=== PATIENT | male | born 1995 | race Caucasian/White ===

== ENCOUNTER 2020-02-09 14:04 | Inpatient (IN) | payer MEDICAID, SELFPAY ==
[2020-02-09 14:08] VITALS: BP 147/69; PULSE 91; TEMP 36.8; O2SAT 98
--- NOTE | 2020-02-09 14:45 | W.ED.GENAD ---
Discharge Plan Disposition Patient Disposition: [facility] INPATIENT Condition: Stable Discharge Details Chief Complaint: PsychEval Clinical Impression: Psychosis, Substance abuse Admit Date/Time: 02/09/20 22:08 Admit Provider: Latasha Horowitz Attending Provider: Latasha Horowitz Primary Care Provider: Saqib Quiroga ED Provider: Paulino Mcintyre [facility] Course Hospital Course: 24-year-old male with a past medical history of unspecified psychotic disorder and chronic polypharmacy drug abuse including narcotics, THC, and cocaine who presents with acute exacerbation of psychosis manifested by auditory hallucinations and suicidal and homicidal ideation. He was brought in by his family because of aggressive and labile behavior and concern for risky behavior including cleaning of his gun while making statements of some body could get hurt soon if they do not stop the voices. Patient was admitted as an involuntary emergency evaluation admission for acute psychosis. Second certification was performed by a state psychiatrist who agreed that he needs hospitalization. During his hospitalization he required multiple antipsychotic medications including Zyprexa and Haldol which were tried emergency department in addition to benzodiazepines and Benadryl. Eventually calm down in the emergency room with the use of ketamine. However after being hospitalized he exhibited more aggressive behavior along with continued auditory hallucinations and required repeated treatments with IM Valium as well as Benadryl and Thorazine (he had pulled out his IV and therefore IM medications were used. Combination of high-dose Valium at 20 mg IM and Benadryl 50 mg IM and Thorazine 50 mg IM seem to work the best in terms of controlling his symptoms including a reduction in his auditory hallucinations and improved sleep. A lower dose of Thorazine 25 mg had been tried initially without success. At this time the patient needs ongoing inpatient psychiatric treatment as well as reinstitution of antipsychotic oral medications. He has been accepted to the [facility] in [place], [place]. Discharge Instructions Instructions: Bipolar Disorder (DC), Help Prevent Suicide (DC) Discharge Data Discharge Date/Time-TO BE ENTERED AT DEPARTURE: 02/09/20 23:55 Medical Decision Making <ADEOLA Crowe - Last Filed: 02/12/20 08:22> Is a 24-year-old patient presenting the emergency room for acute agitation. Patient is reporting auditory hallucinations. Patient is responding to his auditory hallucinations which are causing agitation. Patient is accompanied by his mother whom he has been staying with for the weekend. Mother reports she is concerned regarding his alcohol and drug use. Patient has been drinking alcohol then reportedly using crack and cocaine. Patient does report a history of substance abuse for the last 5 to 6 years. Patient reports initially when asked that he is neither homicidal or suicidal however within a few minutes of becoming agitated reports that he would kill himself. Mother is concerned as patient was cleaning his guns at home. Mother concerned regarding patient's agitation and behavior. Patient has been given Ativan at this afternoon at approximately noon which was the patient's mother's. Patient took 0.5 mg of Ativan which was somewhat helpful to calm him down. Patient denies any acute medical concerns at this time. Patient given Zyprexa and Ativan to calm his auditory hallucinations and agitation after initial evaluation. Patient to become more calm. Patient consented to labs and urinalysis. Discussed case with mental health who had conversation with the patient via iPad Per [facility] she reports the patient and mother declined admission to the hospital. Their preference is outpatient management, with plan to follow-up as an outpatient. I am somewhat concerned regarding this plan given patient's initial presentation clearly reacting to auditory hallucinations and quite agitated. I went to discuss this plan of care with the patient who very quickly began to escalate and become agitated. At this point I reached back out to mental health who will speak with her stave cutting supervisor. At this time case was signed out to Dr. Gordon Shipman. <Gordon Shipman MD - Last Filed: 02/09/20 21:47> 18:30 --care signed out by ADEOLA Fountain with plan to follow-up on mental health recommendation based on reassessment. Mental health screener assessed the patient and feels patient cannot safely be discharged home and is at risk of harming self or others. Patient refusing voluntary admission. Plan to proceed with EE evaluation. Patient refusing treatment and refusing to cooperate - patient asked to stay in room and he immediately left room and confronted staff aggressively. Mother escalating situation and asked to leave the emergency department. Patient throwing articles across the emergency department. Screaming and hollering at staff. He is verbally threatening to staff. De-escalation techniques not successful. Code wilmar called. Patient was successfully restrained without complication. One-to-one clinical patient observer initiated. Patient quite agitated post restraint application. Patient screaming, red in the face and diaphoretic. Patient threatening I will kill everyone. Just wait, I will fucking kill all of you. Will administer chemical sedative and antipsychotic Haldol 5 mg IM, Ativan 2 mg IM and Benadryl 25 mg IM. --Reassessed and continues to be agitated, struggling against restraints and spitting at staff. Ketamine administered as a sedative. EE paperwork was completed. I attempted to update patient's father and mother who are here in the waiting room. Parents are upset that they are unable to take the patient home at this time. Patient's father became quite upset and verbally threatening. He was escorted from the hospital by security staff. I then had a lengthy conversation with the patient's mother and explained that our primary goal is the wellbeing of her son that we are doing all that we can do ensure his safety and to expedite psychiatric treatment for his acute psychosis. Labs reviewed and nondiagnostic. Electrolytes within normal limits. UDS is positive for THC. --I called and spoke with [facility] infantry operations specialist and updated her as to course. She is attempted to expedite the process. 20:22 --patient resting comfortably. Will obtain screening ECG. Will obtain screening COVID-19 testing. Plan to continue physical restraints at this time until ketamine effect has worn off to ensure patient is safe for removal given severity of aggression and psychosis prior to restraint application. I am concerned that if we remove them at this time and ketamine were to wear off and he still be aggressive, staff would be at risk and patient would be at risk of harming himself. We will continue to monitor continuously. 21:00 -- I spoke with patient's mother on phone and updated her as to course. She expressed concern for potential withdrawal as patient last had alcoholic drink 2 days ago. I spoke with [facility] - transfer will not occur tonight. Second cert evaluation to occur in AM. Plan to observe here overnight. Screening ECG was reviewed and interpreted by me: Sinus rhythm 73 bpm, normal axis, QTC 416. 21:45 -- I spoke with Dr. Horowitz who will admit the patient and requests bridging orders to ICU. CT head ordered for new psycosis/altered mentation. <Paulino Mcintyre MD - Last Filed: 02/09/20 23:29> Patient was signed out to me pending admission to the hospital. At time of signout he was in four-point restraints and had been chemically sedated. He began waking up from his sedation. He would amp up trying to get out of the restraints and repeatedly screamed out. Also reported that he needed to urinate. Tried to help him urinate with use of urinal but he was unable to. He continued to complain of the restraints and the need to urinate. I discussed with him why he was in restraints and what it would require for him to come out of restraints. This needed to be repeated a number of times. Ultimately restraints were removed. Patient was helped to standing position because of the amount of medication that was still on board. He was able to urinate for us. He then changed into paper scrubs. He has subsequently remained in bed and for the most part cooperative and sleeping. He was fed. He has been seen by hospitalist. He at this point will be admitted upstairs for further management. Medical Records Medical records reviewed: Yes I reviewed the patient's medical records. HPI <ADEOLA Crowe - Last Filed: 02/12/20 08:22> General Date/Time Provider Initiated Documentation: 02/09/20 14:11. HPI Narrative: This is a 24-year-old patient presenting to the emergency room for psych evaluation. Mother at the bedside reports she is very concerned about the patient as he has had increasing agitation, has been increasingly violent, is hearing voices, patient responding to voices. When asked patient denies any obvious medical concerns at this time. Mother reports in the last few weeks patient's been increasingly agitated specifically over the weekend mother had to keep patient at her home as she was concerned about his aggressive behavior. Patient does endorse drug and alcohol use for the last 5 to 6 years. Patient reports most recently snorting crack and cocaine 2 days ago as well as drinking alcohol. Patient was discharged from the due to alcohol use. Patient reports that he is aware of the voices, they are people that he knows, he reacts to what they are telling him which is what they want. Patient initially declined suicidal ideation or homicidal ideation then later in our conversation reports that he would kill himself. Mother reports she has given him Ativan 0.5 mg at noon which was somewhat helpful. Denies any fever, chills, chest pain, difficulty breathing shortness of breath or wheezing. Denies any headache or dizziness. No other medical concerns or complaints at this time. Reports urinating and moving bowels without difficulty Related Data Home Medications Medication Instructions Recorded Confirmed olanzapine 10 mg tablet 10 mg PO DAILY #30 tab 07/17/19 07/17/19 lorazepam 1 mg tablet 1 mg PO QID PRN PRN #30 tab 07/27/19 02/09/20 Previous Rx's Medication Instructions Recorded olanzapine 10 mg tablet 10 mg PO DAILY #30 tab 07/17/19 lorazepam 1 mg tablet 1 mg PO QID PRN PRN #30 tab 07/27/19 Allergies Allergy/AdvReac Type Severity Reaction Status Date / Time No Known Allergies Allergy Unverified 02/09/20 14:18 General Stated Complaint: PsychEval KEITH: 2 Review of Systems <ADEOLA Crowe - Last Filed: 02/12/20 08:22> All systems reviewed & are unremarkable except as noted in HPI and below PFSH <ADEOLA Crowe - Last Filed: 02/12/20 08:22> Medical History (Updated 02/09/20 @ 23:33 by Latasha Horowitz MD) Alcoholism (Acute) 07/02/19 Abstinent 24 days Other mixed anxiety disorders (Acute 06/27/16) Psychosis (Acute) Substance abuse (Acute) Surgical History (Updated 02/09/20 @ 23:22 by Latasha Horowitz MD) No pertinent past surgical history (Acute) Family History Mother Systemic lupus erythematosus Sickle cell trait Father Essential hypertension Grandfather Neoplasm ABDOMINAL Grandmother Neoplasm LUNG Other No problems noted. Maternal History Diabetes Social History Smoking/Tobacco Use Status: Current every day Tobacco Type: cigarettes Alcohol Intake: current Alcohol type: beer, wine and hard liquor Drug use: Daily Substance use type: marijuana Do you feel safe at home: Yes Do you feel safe in your relationship?: Yes Exam <ADEOLA Crowe - Last Filed: 02/12/20 08:22> Narrative Exam Narrative: CONST: Healthy appearing patient, in no acute distress. Well hydrated. Alert and oriented. HENMT: Head nomocephalic, normal to inspection. Atraumatic. Hearing grossly normal. TMs appear normal bilaterally. No pharyngeal erythema. Mucous membranes moist. EYES: General normal appearance. Alignment normal. Eyelids normal. Conjunctiva normal. NECK: Normal visual inspection. FROM. Trachea midline. No Midline tenderness. CHEST: Normal insepection of the chest. RESP: Normal respiratory effort. Speaking full sentences. No cough. No audible wheezing. No retractions. Breath sounds clear, full and equal bilaterally. No wheezing, rhonchi or rales. CARDIO: No JVD. No murmur. Regular rate and rhythm no murmur. Regular rate and rhythm MUSCULOSKELETAL: Normal Gait. FROM of all extremities. SKIN: Normal. Dry. No rashes. NEURO: Alert and awake. Speech clear. PSYCH: Patient responding to auditory hallucinations, patient very agitated, patient aggressively walking and pacing in the room. Course <ADEOLA Crowe - Last Filed: 02/12/20 08:22> Vital Signs Vital signs: Vital Signs Temperature 36.8 C 02/09/20 14:08 Pulse 91 H 02/09/20 14:08 Blood Pressure 147/69 H 02/09/20 14:08 Pulse Oximetry 98 02/09/20 14:08 Temperature 36.8 C 02/09/20 14:08 Temperature Source Temporal Artery Scan 02/09/20 14:08 Pulse 91 H 02/09/20 14:08 Respiratory Effort Non-Labored 02/09/20 14:17 Blood Pressure 147/69 H 02/09/20 14:08 Blood Pressure Position Sitting 02/09/20 14:08 Pulse Oximetry 98 02/09/20 14:08 Oxygen Delivery Method Room Air 02/09/20 14:08 Oxygen Flow Rate 0 02/09/20 14:08 <Gordon Shipman MD - Last Filed: 02/09/20 21:47> Time of Face to Face Face to Face: Time of Face to Face: 18:30 Patient's Immediate Situation Requiring Restraints/Seclusion: Harm to Staff & Others Patient Response to Restraints: Remains Agitated and Restless Patient's Medical & Behavioral Condition: Aggressive, labile, confrontational, unable to de-escalate Need for Continuation of Restraints Has Been Assessed: Restraints Continued 2nd Face to Face: Time of Face to Face: 20:30 Patient's Immediate Situation Requiring Restraints/Seclusion: Harm to Staff & Others Patient Response to Restraints: Tolerating without Problems Patient's Medical & Behavioral Condition: Concern the patient would quickly escalate when ketamine wears off. We will continue to monitor closely and as patient becomes more alert will reassess for straight need to continue to protect the patient and staff. Need for Continuation of Restraints Has Been Assessed: Restraints Continued Sign Out <ADEOLA Crowe - Last Filed: 02/12/20 08:22> Sign Out Data: Sign Out Comment: Signout pending reassessment and ultimate disposition Last updated by Ingrid Moreira PA at 02/09/20 17:29 Sign Out Comment: Patient currently in physical restraints, observing closely. There is concerned that when ketamine wears off patient may again become aggressive and confrontational admit risk of harming himself is others. We will continue to monitor closely. Plan at signout is to await second certification. Unclear if patient will be transferred to acute psychiatric treatment facility [facility]. Safety plan has been updated by care management. Last updated by Gordon Shipman MD at 02/09/20 20:34
[2020-02-09] MEDS: OLANZapine 5 MG TAB PO (14:49)
[2020-02-09] MEDS: LORazepam 1 MG TAB 2 MG PO (14:49)
--- NOTE | 2020-02-09 14:49 | CMSP_ITS ---
- If Service Date Differs Date of service: 02/09/20 Time of Service: 14:49 Care Management Safety Plan Chief Complaint: Attila is a 24 year old male who presents in the emergency department with his mother for depression and agitation. Attila has a significant history of substance use and a review of his medical chart reveals an episode of psychosis in 2016. Today, mother reports to ED provider that she is concerned about Attila because he is hearing voices and is becoming increasingly violent. Attila confirms he is experiencing auditory hallucinations and he admits to snorting crack cocaine 2 days ago, as well as drinking alcohol. CM will respond to ED to assess patient after patient has been medically cleared and assessed by screener. If screener deems patient meets criteria for psychiatric stabilization CM will facilitate interdepartmental huddle with [facility] screener for safety planning considerations and meet with patient to review [facility] policy and safety plan, establish individual wishes for treatment and maintain patient rights. In the interim; please note safety plan below to guide patient care while awaiting further assessment in the ED. SAFETY PLAN: 1. Will remain on suicide precautions and in paper clothes. 2. Will remain in room under direct supervision of one-on-one staff at all times provided by [employer], CARLOS ENRIQUE, BALANCE SHEET ANALYST clinical instructor. 3. May have paper cups, plates, finger foods as well as a cardboard spoon with which to eat meals. 4. Follow [facility] Management of the Admitted Behavioral Health Patient policy. 5. Comfort bath system only. 6. No personal belongings. 7. Visitors: No visitors at this time, except for his mother who accompanies him to the ED. 8. Activities: None at this time. 8. No telephone privileges at this time. 9. Due to VOLUNTARY status, if patient wishes to leave [facility], the [facility] collision worker must be contacted to evaluate patient prior to patient exiting the building. If deemed appropriate for inpatient psychiatric care, safety plan will be established with patient, and care team, to adhere to patient goals, identify restrictions based on behavioral status, address nutrition, and determine allowed personal belongings, tools for hygiene and personal care. As well plan will determine level of activity including ambulation, level of supervision, visitors, and determine privileges based on level of acuity, behaviors and level of engagement by patient.
[2020-02-09 16:00] LABS: *AMPHETAMINES SCREEN URINE Negative (Negative); *BARBITURATES SCREEN URINE Negative (Negative); *BENZODIAZEPINES SCREEN URINE Negative (Negative); Cannabinoids THC POSITIVE (Negative); Cocaine Screen,Urine Negative (Negative); METHADONE URINE SCREEN Negative (Negative); OPIATES URINE SCREEN Negative (Negative)
[2020-02-09 16:03] LABS: Abs Immature Grans 0.02 k/cumm (0.0-0.09); Absolute Basophil Count 0.03 k/cumm (0.0-0.2); Absolute Eosinophil Count 0.06 k/cumm (0.0-0.7); Absolute Lymphocyte Count 1.78 k/cumm (1.2-3.4); Absolute Monocyte Count 0.83 k/cumm (0.11-0.7); Absolute Neutrophil Count 7.62 k/cumm (1.2-6.7); Basophils % 0.3; Eosinophils % 0.6; HCT 42.6 % (40.0-50.0); HGB 14.3 g/dL (13.5-17.5); Immature Grans % 0.2 %; Lymphocytes % 17.2; Mean Corp. HGB Concentration 33.6 g/dL (32.0-36.0); Mean Corpuscular Hemoglobin 22.1 pg (27.0-33.0); Mean Corpuscular Volume 65.9 fL (80-95); Mean Platelet Volume 10.1 fL (8.0-11.0); Neutrophils % 73.7; Platelet Count 288 x1000/uL (130-400); RBC 6.46 m/cumm (4.50-6.00); RBC Distribution Width 14.7 % (11.8-14.1); White Blood Cell Count 10.34 k/cumm (4.4-10.8)
[2020-02-09 16:15] LABS: ALT 29 U/L (16-63); AST 23 U/L (15-37); Albumin 4.7 g/dL (3.4-5.0); Alkaline Phosphatase 68 U/L (46-116); Anion Gap 8.3 mmol/L (3-11); BUN 18 mg/dL (7-18); Bilirubin, Total 0.5 mg/dL (0.2-1.0); CO2 28.7 mmol/L (21.0-32.0); CREATININE 1.23 mg/dL (0.70-1.30); Chloride 101 mmol/L (98-107); Glucose 105 mg/dL (74-106); Potassium 3.9 mmol/L (3.5-5.1); Sodium 138 mmol/L (136-145); Total Protein 8.4 g/dL (6.4-8.2)
[2020-02-09 16:23] LABS: Tricyclic Antidepressants Negative (Negative)
[2020-02-09 16:25] LABS: ETHANOL BLOOD < 3.0 mg/dL (<3)
[2020-02-09 16:26] LABS: Diff Comment Diff Reviewed; Microcytosis 2+
--- NOTE | 2020-02-09 17:06 | PDOC.MHCN ---
<Kaelyn Alia - Last Filed: 02/09/20 17:57> Date of service: 02/09/20 Time of Service: 17:07 Mental Health Crisis Note <Kaelyn Alia - Last Filed: 02/09/20 17:57> Presenting Issue How did you arrive at the ED and why did you come: Attila was brought to the ER via his mother due to Auditory hallucinations and concerns for safety. Precipitating Factors Attila was inconsistent in his reports of SI and HI. He would say yes and then when asked about firearms he would say he has hd thoughts but then when he goes to get his gun he just wants to go hunting. He stated that He hears voices that are familiar to him and they tell him we'll kill him. Disposition BEHAVIOR: Attila's behavior is a rapid going roller coaster. He is polite and kind one minute and the next he is avoidant and then he is angry and yelling he is done. ER provider reports that Attila was responding to internal stimuli when he arrived and presented the same way. He does not appear to be able to regulate his mood. EYE CONTACT: Eye contact is inconsistent MOOD: Mood is as explained above, all over the place and unpredictable. AFFECT: Affect is the same as his mood. APPETITE: Pt reports poor appetite SLEEP(trouble falling/staying asleep: Pt reports good sleep Plan Attila is unpredictable and impulsive. He is not willing to go to a hospital voluntarily however wants out Pt treatment. This clinician and ED doctor will write an EE. Signature Clinician's Name/Title: Kaelyn Rojo MS, [facility] Emergency Services Clinician
[2020-02-09] MEDS: Ketamine 500 MG/5 ML VIAL (18:30)
--- NOTE | 2020-02-09 18:36 | NUR.NOTE ---
patient continues to attempt to get out of restraints, spitting at staff, spit mask applied, ketamine given per MD order.
--- NOTE | 2020-02-09 19:00 | NUR.NOTE ---
Assumed care of pt Report from Wendie. Pt in 4 point restraints. CPSO at bedside. Drowsy, arousable to voice.
--- NOTE | 2020-02-09 19:01 | PDOC.CMSAFED ---
- If Service Date Differs Date of service: 02/09/20 Time of Service: 19:01 Care Management Safety Plan Care Management Safety Plan PATIENT NAME: AYESHA GROSSMAN UNIT #: [id number] ADMITTING PROVIDER: Jovanna Howell PRIMARY CARE PROVIDER: JIMMY CUEVAS MD DATE OF ADMIT: 02/09/20 : 1995 Care Management Safety Plan Chief Complaint: Ayesha is a 24 year old male who presents in the emergency department with his mother for depression and agitation. Ayesha has a significant history of substance use and a review of his medical chart reveals an episode of psychosis in 2016. Today, mother reports to ED provider that she is concerned about Ayesha because he is hearing voices and is becoming increasingly violent. Ayesha confirms he is experiencing auditory hallucinations and he admits to snorting crack cocaine 2 days ago, as well as drinking alcohol. CM contacted [facility] and reviewed the plan patient will be placed in involuntary status, please see mental health [facility] note. Ayesha is Involuntary at this time. CM contacted [facility] and reviewed plan with [facility]. [facility] has contacted hospitals there is no bed at this time. Anticipate patient will have the second certification tomorrow.; Please note safety plan below to guide patient care while he remains at [facility]. Crisis intelligence consultant will contact Care Management and the ED with any updates. The safety plan follows [facility] protocol for managing the behavioral health patient and addresses safety, and patient needs. SAFETY PLAN: 1. Will remain on suicide precautions and in paper clothes. 2. Will remain in room under direct supervision of one-on-one staff at all times provided by [employer], CARLOS ENRIQUE, PROFESSOR OF POULTRY SCIENCE loader operator/ground leader. 3. May have paper cups, plates, finger foods as well as a cardboard spoon with which to eat meals. 4. Follow [facility] Management of the Admitted Behavioral Health Patient policy. 5. Comfort wipes for hygiene. 6. No personal belongings. 7. Visitors: No visitors at this time, except for his mother who accompanies him to the ED at the discretion of staff and patient behavior and engagement. 8. Activities: paper, crayons at the discretion staff. 8. No telephone privileges at this time. 9. Due to INVOLUNTARY status, patient may not leave the hospital. [facility] crisis and Biomedical Photographer intelligence consultant should be contacted in the event patient attempts to leave the hospital This is privileged, confidential information, intended only for the provider named. Any use or distribution by any person other than this provider is strictly prohibited. If you receive this report in error, please notify us immediately at [phone] and return the original report to us at the address above. Thank you.
[2020-02-09 19:14] VITALS: PULSE 97; RESP 17; O2SAT 98
[2020-02-09 19:47] VITALS: PULSE 80; RESP 16
--- NOTE | 2020-02-09 20:27 | NUR.NOTE ---
Criteria for restraint removal discussed with MD Shipman. Pt arousable to voice, thrashing in bed with covid testing.Plan to keep pt in restraints d/t behavior prior to medicating with ketamine.
[2020-02-09 20:46] VITALS: PULSE 65; RESP 17; O2SAT 98
[2020-02-09 21:27] VITALS: PULSE 60; RESP 18
[2020-02-09 22:00] VITALS: PULSE 65; RESP 17
--- NOTE | 2020-02-09 22:17 | NUR.NOTE ---
Pt yelling out, sitting up in bed, yelling i have to pee. pt disoriented to place and time. Made aware we cannot let him out of restraints. Multiple attempts to help pt use urinal with both male and female staff, pt states unable.
--- NOTE | 2020-02-09 22:57 | NUR.NOTE ---
Discussed with MD Mcintyre, restraints removed, pt assisted to void. 300mL yellow urine out. Pt changed to paper clothing. Unsteady on his feet. CPSO at door.
--- NOTE | 2020-02-09 22:59 | W.PM.HP.N ---
Date of service: 02/09/20 Time of Service: 22:59 Assessment and Plan Assessment and plan (1) Acute psychosis: Status: Acute Assessment and plan: Sounds like this issue is acute on chronic and could also be exacerbated by polysubstance use. Given the degree of patient's agitation and the fact that he required ketamine in the ED, he will be monitored in the ICU with a CPSO at bedside. He has been [facility] and is awaiting his second certification. We will attempt to find out from [facility] what his medications are and where he fills them. (2) Suicidal ideation: Status: Acute Assessment and plan: Likely part of #1. Patient is on suicide precautions. As above. (3) Polysubstance abuse: Status: Acute Assessment and plan: The patient drinks alcohol, as well as uses crack/cocaine, THC, and smokes. He will be monitored for alcohol withdrawal as well as cocaine withdrawal. (4) Microcytosis: Status: Acute Assessment and plan: The patient's mother has a h/o sickle cell trait, which might explain this. We will check his anemia studies. (5) Alcohol abuse: Status: Chronic Assessment and plan: Monitor for withdrawal with CIWA, prn PO/IV ativan. Write for PO vitamins. (6) DVT prophylaxis: Status: Acute Assessment and plan: Not required in an ambulatory 24 year old male. Wrote for TEDs as he is somnolent tonight (7) Discharge planning issues: Status: Acute Assessment and plan: Full code. [facility]. 2nd cert planned for tomorrow. Total Critical Care Time 40 minutes. History of Present Illness History of Present Illness Chief Complaint: psychosis Narrative: Mr Angulo is a 24 year old male who is unable to provide his own history of the time of my exam, but who reportedly has a history of prior psychiatric admission two years ago for an unknown psychiatric condition, who was brought to [facility] ED today by his mother with concerns about his agitation, auditory hallucinations (going on for some time), and cleaning his guns, raising concerns about his own and other people's safety. There are also concerns about his alcohol and crack/cocaine use. Reportedly, the patient last drank 2 days ago. The patient's mother, who has been staying with him for the last several days out of concern, gave him her own ativan (0.5 mg) earlier today, which may have helped. The patient did mention wanting to kill himself in the ED, though initially he denied SI/HI. The patient received ativan and zyprexa initially (both were at some point his home medications). The patient was offered a voluntary psychiatric admission by [facility], but the patient and his mother initially declined this, requesting outpatient management. The patient got progressively more agitated at while in the ED, requiring haldol/ativan/benadryl combination, which was not helpful (may have made his agitation worse). He required ketamine IM due to extreme agitation and threats of physical violence, during which marly urban was called. He required behavioral restraints. EE paperwork was filled out as [facility] determined that psychiatric admission for this patient would be involuntary. As no psychiatric placement would be possible for Attila soto and the psychiatrist requested to re-evaluate him tomorrow, we were asked to admit the patient to our facility for observation overnight. He is being admitted to the ICU given his ability to escalate rapidly and possibly requirement for additional doses of ketamine. When I came to see the patient, he had just woken up and had his restraints removed. He was loudly demanding to use the rest room and to have dinner. He was agitated. Once he used the restroom, he went back to the stretcher and promptly fell asleep. He was arousable, stating that he was not in pain, that he knew that he was at [facility] and that voices were still sort of speaking to him. The patient fell asleep in the middle of my interview and, given his agitation just minutes earlier, I did not wake him up for further interview and physical exam for safety reasons. No known COVID-19 exposure. Of note, it was felt by the ED staff that the patient's mother's presence in the room may have been triggering of his agitation. Additionally, patient's father had to be escorted from the hospital by security for threatening behavior toward ED provider. Review of Systems Narrative: The patient did specifically deny pain and endorse auditory hallucinations. Unobtainable due to mental status [facility] Medical History (Updated 02/09/20 @ 23:33 by Latasha Horowitz MD) Alcoholism (Acute) 07/02/19 Abstinent 24 days Other mixed anxiety disorders (Acute 06/27/16) Psychosis (Acute) Substance abuse (Acute) Surgical History (Updated 02/09/20 @ 23:22 by Latasha Horowitz MD) No pertinent past surgical history (Acute) Family History Mother Systemic lupus erythematosus Sickle cell trait Father Essential hypertension Grandfather Neoplasm ABDOMINAL Grandmother Neoplasm LUNG Other No problems noted. Maternal History Diabetes Social History Smoking/Tobacco Use Status: Current every day Tobacco Type: cigarettes Alcohol Intake: current Alcohol type: beer, wine and hard liquor Drug use: Daily Substance use type: marijuana Do you feel safe at home: Yes Do you feel safe in your relationship?: Yes Meds Home Medications and Allergies Home Medications Medication Instructions Recorded Confirmed Type olanzapine 10 mg tablet 10 mg PO DAILY #30 tab 07/17/19 07/17/19 Rx lorazepam 1 mg tablet 1 mg PO QID PRN PRN #30 tab 07/27/19 02/09/20 Rx Allergies Allergy/AdvReac Type Severity Reaction Status Date / Time No Known Allergies Allergy Unverified 02/09/20 14:18 Exam Narrative Exam Narrative: General: Somnolent/lethargic male who was agitated minutes earlier, arousable, falls asleep during interview, no signs of respiratory depression or physical discomfort noted. No restraints at the time of my exam Neurological: A&Ox3 (knows it's [facility] and that it's January of 2020), no focal deficits Psychiatric: Patient seen escalating rather rapidly, but then quickly calmed down and fell asleep. Skin: Visible skin intact; [place] HEENT: Atraumatic, normocephalic, EOMI when awake, MMM that I can appreciate without the patient participation with oropharyngeal exam, no visible goiter or JVD Cardiovascular: Not auscultated due to concerns for safety Lungs: Not auscultated due to concerns for safety; nonlabored breathing Gastrointestinal: not visibly distended; manual palpation not performed due to concerns for safety Genitourinary: deferred Extremities: no visible edema, bruising, or cuts. Results Imaging Additional studies: EKG: NSR, HR 73, no acute ischemia, QTc 416 CT head from 2016 (obtained under similar circumstances): reviewed; negative. Labs Result diagrams: 02/09/20 15:55 02/09/20 15:55 Labs: Laboratory Results - last 24 hr 02/09/20 02/09/20 02/09/20 15:39 15:55 15:55 WBC 10.34 RBC 6.46 H Hgb 14.3 Hct 42.6 MCV 65.9 L MCH 22.1 L MCHC 33.6 RDW 14.7 H Plt Count 288 MPV 10.1 Immature Gran % 0.2 Neutrophils % 73.7 Lymphocytes % 17.2 Monocytes % 8.0 Eosinophils % 0.6 Basophils % 0.3 Absolute Neutrophils 7.62 H Absolute Lymphocytes 1.78 Absolute Monocytes 0.83 H Absolute Eosinophils 0.06 Absolute Basophils 0.03 Differential Comment Diff reviewed RBC Morphology See below Microcytosis 2+ Sodium Potassium Chloride Carbon Dioxide Anion Gap BUN Creatinine Estimated GFR/1.73 m2 Glucose Calcium Total Bilirubin AST ALT Alkaline Phosphatase Total Protein Albumin Urine Opiates Screen Negative Urine Methadone Screen Negative Ur Barbiturates Screen Negative Ur Tricyclics Screen Negative Ur Amphetamines Screen Negative U Benzodiazepines Scrn Negative Urine Cocaine Screen Negative Ur THC Screen Positive A Ethyl Alcohol < 3.0 02/09/20 15:55 WBC RBC Hgb Hct MCV MCH MCHC RDW Plt Count MPV Immature Gran % Neutrophils % Lymphocytes % Monocytes % Eosinophils % Basophils % Absolute Neutrophils Absolute Lymphocytes Absolute Monocytes Absolute Eosinophils Absolute Basophils Differential Comment RBC Morphology Microcytosis Sodium 138 Potassium 3.9 Chloride 101 Carbon Dioxide 28.7 Anion Gap 8.3 BUN 18 Creatinine 1.23 Estimated GFR/1.73 m2 >= 60.00 Glucose 105 Calcium 10.0 Total Bilirubin 0.5 AST 23 ALT 29 Alkaline Phosphatase 68 Total Protein 8.4 H Albumin 4.7 Urine Opiates Screen Urine Methadone Screen Ur Barbiturates Screen Ur Tricyclics Screen Ur Amphetamines Screen U Benzodiazepines Scrn Urine Cocaine Screen Ur THC Screen Ethyl Alcohol Last Vital Signs Temp 36.8 C 02/09/20 14:08 Pulse 65 02/09/20 22:00 Resp 17 02/09/20 22:00 BP 147/69 H 02/09/20 14:08 Pulse Ox 98 02/09/20 20:46 COVID-19 Screening In the past 14 days, have you traveled outside of [place] or [place]?: NO Had IN PERSON contact w/suspected or confirmed C-19 person: No
[2020-02-09 23:12] LABS: TSH 2.07 uIU/mL (0.36-3.74)
--- NOTE | 2020-02-09 23:23 | NUR.NOTE ---
Pt provided with turkey sandwich, gingerale. pt oob multiple times to use urina. Remains unsteady, i feel kind of dizzy. Encouraged to remain in bed and ask for assist to stand. Provided with blankets.
[2020-02-10] VITALS (24 sets, daily range): BP systolic 104–123; BP diastolic 48–101; PULSE 55–129; RESP 12–20; TEMP 36.7–37.3; O2SAT 96–99
[2020-02-10] MEDS: LORazepam 1 MG TAB PO/SL ×3 (00:13→13:32)
[2020-02-10 07:01] LABS: Abs Immature Grans 0.01 k/cumm (0.0-0.09); Absolute Basophil Count 0.03 k/cumm (0.0-0.2); Absolute Eosinophil Count 0.12 k/cumm (0.0-0.7); Absolute Lymphocyte Count 2.41 k/cumm (1.2-3.4); Absolute Monocyte Count 0.78 k/cumm (0.11-0.7); Absolute Neutrophil Count 4.05 k/cumm (1.2-6.7); Basophils % 0.4; Eosinophils % 1.6; HCT 42.8 % (40.0-50.0); HGB 14.2 g/dL (13.5-17.5); Immature Grans % 0.1 %; Lymphocytes % 32.6; Mean Corp. HGB Concentration 33.2 g/dL (32.0-36.0); Mean Corpuscular Volume 66.4 fL (80-95); Mean Platelet Volume 10.8 fL (8.0-11.0); Monocytes % 10.5; Neutrophils % 54.8; Platelet Count 268 x1000/uL (130-400); RBC 6.45 m/cumm (4.50-6.00); RBC Distribution Width 14.8 % (11.8-14.1)
[2020-02-10 07:44] LABS: Anion Gap 7.1 mmol/L (3-11); BUN 16 mg/dL (7-18); CO2 29.9 mmol/L (21.0-32.0); Calcium 9.3 mg/dL (8.5-10.1); Chloride 104 mmol/L (98-107); Ferritin 75 ng/mL (26-388); Glucose 95 mg/dL (74-106); Magnesium 2.3 mg/dL (1.8-2.4); Potassium 3.5 mmol/L (3.5-5.1); Sodium 141 mmol/L (136-145); Vitamin B12 542 pg/mL (193-986)
[2020-02-10] MEDS: Folic Acid 1 MG TAB PO (08:29)
[2020-02-10] MEDS: Multivitamin TAB 1 TAB PO (08:29)
[2020-02-10] MEDS: Thiamine 100 MG TAB PO (08:30)
--- NOTE | 2020-02-10 11:03 | PDOC.CMPRO ---
- If Service Date Differs Date of service: 02/10/20 Time of Service: 11:03 Care Management Progress Note S/O: Attila is in the ICU, he is currently involuntary. CM was called in to deescalate behaviors. CM advised Attila of his rights as an involuntary patient and informed him of the plan for second certification. Attila is calm with CM he agrees to try and self regulate while he waits for the second cert. His eye contact was intentional and direct, he was able to acknowledge that he is involuntary and that department of mental health and [facility] will manage the plan for treatment. After his acknowledgement he states mariellek trump. Attila is taking his Ativan while CM is in the room, he agrees to try and be safe. CM reviewed the safety plan with the patient and explained why it is in place. Attila did not make any additional request or changes to the safety plan. When CM left the patient he was calm and laid back down in the bed to rest. Attila will not have any visitors at this time, according to the ED Attila, his Mother and Father where threatening to the provider in the ED and made several threats against the provider and his family. Attila is not requesting to see his parents at this time and understands the plan will remain the same for now. HEIKE has been in contact with the care team, and [facility] awaiting a second cert. Attila is a flight risk and will need to remain on close observation by CPSO and primary care team and require frequent deescalation. Please see separate safety plan for guidelines and restriction based on behaviors and presentation. A: Attila is a 24 year male admitted for psychiatric placement and ETOH withdrawal. P: Attila remains involuntary at this time. He will be placed at psychiatric facility once a bed is available and would benefit from co-occurring unit for alcohol withdrawal. CM will continue to provide support, to patient and staff, including updating the safety plan and coordination of second certification and ongoing assessments. Attila will be transported by Client Server Developer at time of transfer to be coordinated by [facility].
--- NOTE | 2020-02-10 11:31 | CMSP_ITS ---
- If Service Date Differs Date of service: 02/10/20 Time of Service: 11:31 Care Management Safety Plan Attila remains INVOLUNTARY FOR INPATIENT PSYCHIATRIC STABILIZATION. Awaiting second certification. Safety plan has been established to meet the needs of the patient, and consideration of the care team, to adhere to patient goals, identify restrictions based on behavioral status, address nutrition, and determine allowed personal belongings, tools for hygiene and personal care. Determine level of activity including ambulation, level of supervision, visitors, and determine privileges based on behaviors and level of engagement by pt. SAFETY PLAN: 1. Will remain on SI/HI precautions. In Paper Clothes 2. Will remain in room under direct supervision of one-on-one staff at all times provided by CPSO; CARLOS ENRIQUE, HATCHERY WORKER industrial relations counselor. Per [facility] patient is a flight risk and can escalate quickly and impulsively. 3. May have paper cups, plates, finger foods as well as a cardboard spoon 4. Follow [facility] Management of the Admitted Behavioral Health Patient policy. 5. Comfort wipes only. 6. No personal belongings 7. Visitors-legal sales representative printing supplies, only if available 8. Activities: Soft tip makers papers if requested. 9. Bathroom privileges with direct supervision at all times. 10. Phone: None at this time 11. Due to INVOLUNTARY status, if patient wishes to leave [facility], the [facility] hydroponics worker must be contacted to re-evaluate patient prior to patient exiting the building. Patient is currently involuntarily at [facility] and seeking inpatient admission when a bed becomes available. [facility] Frontline Fruit Grader will continue seeking placement. Please contact the Strategy Intern Mechanical Supervisor ([phone]) and [facility] Fruit Grader ([phone]) for any needed changes in the Safety Plan. Safety plan has been provided to interdepartmental care team. Patient will be transferred by coordinated by [facility].
[2020-02-10] MEDS: diphenhydrAMINE 50 MG/ML VIAL IM ×2 (11:48→14:50)
[2020-02-10] MEDS: chlorproMAZINE 25 MG/ML AMP IM (11:49)
[2020-02-10] MEDS: diazePAM 10 MG/2 ML SYR IM (11:49)
[2020-02-10 11:59] LABS: Iron 131 ug/dL (65-175); Total Iron Binding Capacity 298 ug/dL (250-450); Transferrin Sat 44 % (20-55)
--- NOTE | 2020-02-10 12:36 | PGE_ITS ---
Date of Service Date of service: 02/10/20 Time of Service: 12:36 Assessment and Plan Assessment and plan (1) Acute psychosis: Status: Acute Assessment and plan: Sounds like this issue is acute on chronic and could also be exacerbated by polysubstance use. Given the degree of patient's agitation and the fact that he required ketamine in the ED, he will be monitored in the ICU with a CPSO at bedside. He has been 'ed and is awaiting his second certification. We will attempt to find out from [facility] what his medications are and where he fills them. (2) Suicidal ideation: Status: Acute Assessment and plan: Likely part of #1. Patient is on suicide precautions. As above. (3) Polysubstance abuse: Status: Acute Assessment and plan: The patient drinks alcohol, as well as uses crack/cocaine, THC, and smokes. He will be monitored for alcohol withdrawal as well as cocaine withdrawal. (4) Alcohol abuse: Status: Chronic Assessment and plan: Monitor for withdrawal with CIWA, prn PO/IV ativan. Write for PO vitamins. (5) DVT prophylaxis: Status: Acute Assessment and plan: Not required in an ambulatory 24 year old male. (6) Discharge planning issues: Status: Acute Assessment and plan: Full code. 'ed. 2nd cert planned for this afternoon. Subjective Subjective Interval history since last seen: Attila is a 24-year-old male with a past medical history significant for alcohol abuse, opioid abuse, cocaine abuse as well as an unspecified psychiatric disorder. Patient was brought to the emergency department by his mother because the patient had become delusional and aggressively agitated. There was some concerns about potential suicidal and homicidal ideation as the patient was cleaning his guns at home and was having auditory hallucinations. See his admission H&P and ER note for details. Apparently his mother tried medicating him with Ativan at home which seemed to help to some degree but when he became uncontrollable he was brought in the emergency department for evaluation. It is reported that the parents are under the impression that he would be medicated and discharged but when it became apparent that he was having acute psychosis inpatient admission was recommended. Patient and his mother initially declined voluntary admission but when the patient had expressed some suicidal thoughts patient underwent an emergency psychiatric evaluation by the ER attending and was placed under involuntary admission. We are currently awaiting a second evaluation by state psychiatrist. Patient's mood has been labile and aggressive at times while at other times he is cooperative and passive. He has required multiple doses of benzodiazepines as well as was given a dose of Zyprexa in the emergency department and required a one-time dose of ketamine last night for sedation. This morning he became wound up and aggressive swearing at the staff but did not exhibit any physical aggression towards the staff. Because he was still hearing voices and becoming aggressive in his behavior he was medicated with Benadryl and Valium and Thorazine. Since that time he is calm down and is sitting on his bed eating his lunch. At times he becomes sleepy and lies down on the bed for short periods of time. We are currently awaiting a second emergency psychiatric evaluation. Exam Narrative Exam Narrative: Alternating behavior of agitation and lethargy. Patient states the medication seems to help calm down the voices in his head and after being medication he is more easily redirected and has been willing to stay in his room. His speech is somewhat slurred since has been medicated. He is not demonstrating any tremors nor any dyskinesia. He has restless at times and will get up out of bed and walk around the room and at times will even do push-ups on the floor the room. At other times he will sit on the bed and pick at his lunch or even lie down in the bed closes eyes for a while. Objective Objective Clinical Data: Abnormal lab results 02/09/20 02/09/20 02/09/20 Range/Units 15:39 15:55 15:55 RBC 6.46 H (4.50-6.00) m/cumm MCV 65.9 L (80-95) fL MCH 22.1 L (27.0-33.0) pg RDW 14.7 H (11.8-14.1) % Absolute Neutrophils 7.62 H (1.2-6.7) k/cumm Absolute Monocytes 0.83 H (0.11-0.7) k/cumm Total Protein 8.4 H (6.4-8.2) g/dL Ur THC Screen Positive A (Negative) 02/10/20 Range/Units 06:15 RBC 6.45 H (4.50-6.00) m/cumm MCV 66.4 L (80-95) fL MCH 22.0 L (27.0-33.0) pg RDW 14.8 H (11.8-14.1) % Absolute Neutrophils (1.2-6.7) k/cumm Absolute Monocytes 0.78 H (0.11-0.7) k/cumm Total Protein (6.4-8.2) g/dL Ur THC Screen (Negative) Vital Signs Temperature 37.2 C 02/10/20 08:00 Temperature Source Temporal Artery Scan 02/10/20 08:00 Pulse 94 H 02/10/20 09:01 Pulse 89 02/10/20 09:01 Respiratory Rate 16 02/10/20 09:01 Respiratory Effort Non-Labored 02/10/20 08:00 Respiratory Depth Normal 02/10/20 08:00 Respiratory Pattern Normal 02/10/20 08:00 Blood Pressure 120/101 H 02/10/20 09:01 Blood Pressure Mean 106 02/10/20 09:01 Blood Pressure Position Supine 02/10/20 08:00 Pulse Oximetry 99 02/10/20 08:01 Oxygen Delivery Method Room Air 02/10/20 08:00 Oxygen Flow Rate 0 02/10/20 08:00 Pain Level 0 02/10/20 08:00 Intake & Output 02/09/20 02/10/20 02/10/20 23:59 11:59 23:59 Intake Total 120 / 120 Output Total 200 / 200 Balance -80 / -80 Weight 89.358 kg 89.358 kg Intake: Oral 120 / 120 Output: Urine 200 / 200 Other: Urine Color Dark Deysi Urine Appearance Clear Urine Odor Strong Laboratory Results WBC 7.40 k/cumm (4.4-10.8) 02/10/20 06:15 RBC 6.45 m/cumm (4.50-6.00) H 02/10/20 06:15 Hgb 14.2 g/dL (13.5-17.5) 02/10/20 06:15 Hct 42.8 % (40.0-50.0) 02/10/20 06:15 MCV 66.4 fL (80-95) L 02/10/20 06:15 MCH 22.0 pg (27.0-33.0) L 02/10/20 06:15 MCHC 33.2 g/dL (32.0-36.0) 02/10/20 06:15 RDW 14.8 % (11.8-14.1) H 02/10/20 06:15 Plt Count 268 x1000/uL (130-400) 02/10/20 06:15 MPV 10.8 fL (8.0-11.0) 02/10/20 06:15 Immature Gran % 0.1 % 02/10/20 06:15 Neutrophils % 54.8 02/10/20 06:15 Lymphocytes % 32.6 02/10/20 06:15 Monocytes % 10.5 02/10/20 06:15 Eosinophils % 1.6 02/10/20 06:15 Basophils % 0.4 02/10/20 06:15 Absolute Neutrophils 4.05 k/cumm (1.2-6.7) 02/10/20 06:15 Absolute Lymphocytes 2.41 k/cumm (1.2-3.4) 02/10/20 06:15 Absolute Monocytes 0.78 k/cumm (0.11-0.7) H 02/10/20 06:15 Absolute Eosinophils 0.12 k/cumm (0.0-0.7) 02/10/20 06:15 Absolute Basophils 0.03 k/cumm (0.0-0.2) 02/10/20 06:15 Differential Comment Diff reviewed 02/09/20 15:55 RBC Morphology See below 02/09/20 15:55 Microcytosis 2+ 02/09/20 15:55 Sodium 141 mmol/L (136-145) 02/10/20 06:15 Potassium 3.5 mmol/L (3.5-5.1) 02/10/20 06:15 Chloride 104 mmol/L (98-107) 02/10/20 06:15 Carbon Dioxide 29.9 mmol/L (21.0-32.0) 02/10/20 06:15 Anion Gap 7.1 mmol/L (3-11) 02/10/20 06:15 BUN 16 mg/dL (7-18) 02/10/20 06:15 Creatinine 1.10 mg/dL (0.70-1.30) 02/10/20 06:15 Estimated GFR/1.73 m2 >= 60.00 (mL/min/1.73m2) 02/10/20 06:15 Glucose 95 mg/dL (74-106) 02/10/20 06:15 Calcium 9.3 mg/dL (8.5-10.1) 02/10/20 06:15 Magnesium 2.3 mg/dL (1.8-2.4) 02/10/20 06:15 Iron 131 ug/dL (65-175) 02/10/20 06:15 TIBC 298 ug/dL (250-450) 02/10/20 06:15 Transferrin % Sat 44 % (20-55) 02/10/20 06:15 Ferritin 75 ng/mL (26-388) 02/10/20 06:15 Total Bilirubin 0.5 mg/dL (0.2-1.0) 02/09/20 15:55 AST 23 U/L (15-37) 02/09/20 15:55 ALT 29 U/L (16-63) 02/09/20 15:55 Alkaline Phosphatase 68 U/L (46-116) 02/09/20 15:55 Total Protein 8.4 g/dL (6.4-8.2) H 02/09/20 15:55 Albumin 4.7 g/dL (3.4-5.0) 02/09/20 15:55 Vitamin B12 542 pg/mL (193-986) 02/10/20 06:15 Folate 19.0 ng/mL (8.6-20.0) 02/10/20 06:15 TSH 2.07 uIU/mL (0.36-3.74) 02/09/20 15:55 Urine Opiates Screen Negative (Negative) 02/09/20 15:39 Urine Methadone Screen Negative (Negative) 02/09/20 15:39 Ur Barbiturates Screen Negative (Negative) 02/09/20 15:39 Ur Tricyclics Screen Negative (Negative) 02/09/20 15:39 Ur Amphetamines Screen Negative (Negative) 02/09/20 15:39 U Benzodiazepines Scrn Negative (Negative) 02/09/20 15:39 Urine Cocaine Screen Negative (Negative) 02/09/20 15:39 Ur THC Screen Positive (Negative) A 02/09/20 15:39 Ethyl Alcohol < 3.0 mg/dL (<3) 02/09/20 15:55
--- NOTE | 2020-02-10 12:50 | NUR.NOTE ---
1130 compliance monitor leads removed- pt exhibiting behavior that was not safe with cords and leads attached to the pt. Close observation continued with CPSO at bedside.
--- NOTE | 2020-02-10 14:48 | W.INMHPGNOTE ---
Date of service: 02/10/20 Time of Service: 14:48 Mental Health Crisis Note Presenting Issue How did you arrive at the ED and why did you come: Ahsan was brought to ER yesterday via his mother due to auditory hallucinations and mom's report that she cannot continue to keep him safe. Precipitating Factors Assessment is done during the 2nd Cert with Dr. Ping Mosley. Ahsan admits that he is SI and HI making a statement Somebody's going to get hurt soon if they don't stop. He attributes his SI and HI to the voices I'm sick of having voices in my head. He stated that he has had the voices all his life or the last 3 day's or three months he does not know but then states he has had them since being in the service. Disposition BEHAVIOR: Attila's behavior continues to be labile and unprovoked. He is quickly agitated and refuses to answer anymore questions. The career resource specialist leaves sthe room and Ahsan is increasing in agitation and comes out of his room needing to be reminded he needs to stay in his room or he will be restrained again. He eventually does return and then allows the conversation to continue but states he is only going to listen. He then gets agitated again and ends the interview. At one point Ahsan looks to the ceiling and says Dad, you can come get me now. I'm done. I want to get out of here. EYE CONTACT: Ahsan's eye contact continues to be intense when he is looking at you but he cannot hold his contact long. MOOD: Mood is agitated and labile. AFFECT: angry and frustrated. APPETITE: Not asked SLEEP(trouble falling/staying asleep: Not asked Plan Dr. Mosley will write the 2nd cert for Attila and he will be held for placement. Outreached to hospitals and faxed to [facility]. BR reported that Ahsan is not being considered due to the acuity on their unit already and his behaviors in the ER last night. [facility] stated [facility] not take EE's so outreached to Addiction Therapist, Felicity Valdivia for [facility] for assistance as Ahsan is not appropriate for the level of care [facility] can provide. Felicity had already gotten that same message from Dr. Mosley and is in communicating with the [facility] now to see about benefits and to clarify if they in fact do not take EE's. She will get back to this clinician when she has an answer. This information was shared with Wilma Howell. Felicity reported that Ahsan is a non which means he can't get services through the [facility]. She is waiting for the written 2nd cert and will send a referral to [facility] for admission. Conversations with Wilma, my engineering team supervisor Melanie Fernandez and Felicity who spoke to her engineering team supervisor, Perry Valentino and all agree that due to Ahsan's high level of agitation and dangerousness we will only do Collateral information from the Addiction Therapist to do our assessments as any questions/interactions increase his need to involuntary meds and restraints and staff's safety. Signature Clinician's Name/Title: Kaelyn Rojo MS, [facility] Emergency Services Clinician
[2020-02-10] MEDS: chlorproMAZINE 25 MG/ML AMP 50 MG IM (14:51)
[2020-02-10] MEDS: diazePAM 10 MG/2 ML SYR 20 MG IM (14:51)
[2020-02-10 15:14] LABS: COVID-19 RT-PCR UVMMC Result Negative (Negative)
--- NOTE | 2020-02-11 04:16 | NUR.NOTE ---
Patient's mother called this morning suggesting the use of seroquel or zyprexa for the his psychosis. This radio news writer relayed the plan of care and goals fat the current time. patient's mother began to escalate on the phone stating that If we had involved his primary care provider we wouldn't need to send him for further help This radio news writer acknowledged the mother's frustration and stated that her concerns would be passed on to the next shift
[2020-02-11] MEDS: Multivitamin TAB 1 TAB PO (07:47)
[2020-02-11] MEDS: Folic Acid 1 MG TAB PO (07:47)
[2020-02-11] MEDS: LORazepam 1 MG TAB PO/SL ×3 (07:47→13:12)
[2020-02-11] MEDS: Thiamine 100 MG TAB PO (07:47)
[2020-02-11 07:51] VITALS: BP 145/82; PULSE 95
[2020-02-11 08:00] VITALS: PULSE 102; RESP 16; TEMP 36.9; O2SAT 98
--- NOTE | 2020-02-11 10:11 | NUR.NOTE ---
Nursing Note: Pt refuses cardiac monitoring, he reports it to be too overwhelming.
[2020-02-11 11:01] VITALS: BP 136/79; PULSE 146
--- NOTE | 2020-02-11 11:03 | NUR.NOTE ---
Nursing Note: pt experiencing increasing anxiety, pacing, profuse swearing, rambling conversation, requested medication from this nurse. 3 mg po Ativan administered. BP 115/87 HR 122
--- NOTE | 2020-02-11 11:33 | W.NUTRFU ---
Date of service: 02/11/20 Time of Service: 11:34 Nutritional Follow up NOTE: 24 year old admitted to ICU with acute psychosis, ETOH abuse. Receiving MVI, Thiamin, folic acid for repletion. BMI indicates overweight status. Following regular meal plan wtih adequate intake. Not at risk for nutritional decline at this time. Time Spent in Nutritional Counseling and Treatment: 0
--- NOTE | 2020-02-11 11:44 | CMSP_ITS ---
- If Service Date Differs Date of service: 02/11/20 Time of Service: 11:44 Care Management Safety Plan Attila remains INVOLUNTARY FOR INPATIENT PSYCHIATRIC STABILIZATION. Attila remains in the ICU with one on one CPSO. Per report he slept well overnight, he has been able to be redirected as needed, he continues to receive Ativan as needed. CM reviewed the plan with primary nurse and Elizabeth at [facility]. Current placed being sought for psychiatric admission including [facility], [place], and [facility]. Elizabeth is also in contact with [facility] to request assistance with placement. [place] admissions contacted and will contact directly to review for possible transfer. Safety plan has been established to meet the needs of the patient, and consideration of the care team, to adhere to patient goals, identify restrictions based on behavioral status, address nutrition, and determine allowed personal belongings, tools for hygiene and personal care. Determine level of activity including ambulation, level of supervision, visitors, and determine privileges based on behaviors and level of engagement by pt. SAFETY PLAN: 02/11/2020 1. Will remain on SI/HI precautions. In Paper Clothes 2. Will remain in room under direct supervision of one-on-one staff at all times provided by CPSO; CARLOS ENRIQUE, VEHICLE DAMAGE APPRAISER bag machine operator helper. Per [facility] patient is a flight risk and can escalate quickly and impulsively. 3. May have paper cups, plates, finger foods as well as a metal spoon at the discretion of primary care team and behaviors 4. Follow [facility] Management of the Admitted Behavioral Health Patient policy. 5. Comfort wipes only. 6. No personal belongings 7. Visitors-legal shipping services sales representative, only if available 8. Activities: Soft tip markers crayons, paper, books to read. 9. Bathroom privileges with direct supervision at all times. 10. Phone: None at this time 11. Due to INVOLUNTARY status, if patient wishes to leave [facility], the [facility] torpedo worker must be contacted to re-evaluate patient prior to patient exiting the building. Patient is currently involuntarily at [facility] and seeking inpatient admission when a bed becomes available. [facility] Frontline Record Center Coordinator will continue seeking placement. Please contact the Clinical Rn Liaison Necktie Maker ([phone]) and [facility] Record Center Coordinator ([phone]) for any needed changes in the Safety Plan. Safety plan has been provided to interdepartmental care team. Patient will be transferred by mapping analyst coordinated by [facility].
--- NOTE | 2020-02-11 11:44 | PDOC.CMSAFE ---
- If Service Date Differs Date of service: 02/11/20 Time of Service: 11:44 Care Management Safety Plan Attila remains INVOLUNTARY FOR INPATIENT PSYCHIATRIC STABILIZATION. Attila remains in the ICU with one on one CPSO. Per report he slept well overnight, he has been able to be redirected as needed, he continues to receive Ativan as needed. CM reviewed the plan with primary nurse and Elizabeth at [facility]. Current placed being sought for psychiatric admission including [facility], [place], and [facility]. Elizabeth is also in contact with [facility] to request assistance with placement. [place] admissions contacted and will contact directly to review for possible transfer. Safety plan has been established to meet the needs of the patient, and consideration of the care team, to adhere to patient goals, identify restrictions based on behavioral status, address nutrition, and determine allowed personal belongings, tools for hygiene and personal care. Determine level of activity including ambulation, level of supervision, visitors, and determine privileges based on behaviors and level of engagement by pt. SAFETY PLAN: 02/11/2020 1. Will remain on SI/HI precautions. In Paper Clothes 2. Will remain in room under direct supervision of one-on-one staff at all times provided by CPSO; CARLOS ENRIQUE, AUTOMOBILE TESTER retort pre cooker. Per [facility] patient is a flight risk and can escalate quickly and impulsively. 3. May have paper cups, plates, finger foods as well as a metal spoon at the discretion of primary care team and behaviors 4. Follow [facility] Management of the Admitted Behavioral Health Patient policy. 5. Comfort wipes only. 6. No personal belongings 7. Visitors-legal payroll representative, only if available 8. Activities: Soft tip markers crayons, paper, books to read. 9. Bathroom privileges with direct supervision at all times. 10. Phone: None at this time 11. Due to INVOLUNTARY status, if patient wishes to leave [facility], the [facility] rock worker must be contacted to re-evaluate patient prior to patient exiting the building. Patient is currently involuntarily at [facility] and seeking inpatient admission when a bed becomes available. [facility] Frontline Lumber Carrier will continue seeking placement. Please contact the Liquid Compounder Janitor And Cleaner ([phone]) and [facility] Lumber Carrier ([phone]) for any needed changes in the Safety Plan. Safety plan has been provided to interdepartmental care team. Patient will be transferred by intensive care specialist coordinated by [facility].
[2020-02-11 12:53] VITALS: PULSE 98; RESP 18; TEMP 37.1; O2SAT 100
[2020-02-11] MEDS: diphenhydrAMINE 50 MG/ML VIAL IM (14:01)
[2020-02-11] MEDS: chlorproMAZINE 25 MG/ML AMP 50 MG IM (14:01)
--- NOTE | 2020-02-11 14:20 | W.PM.DS.N ---
Date of service: 02/11/20 Time of Service: 14:20 DS: Diagnosis Discharge Diagnosis (1) Acute psychosis: Status: Acute Asessment and Plan: acute psychosis in setting of chronic psychiatric disorder ( I suspect he has BPD). He responded well to thorazine/benadryl/valium combination; however, he previously had been on Zyprex. He will be transferred to [facility] for further inpatient medication management. (2) Suicidal ideation: Status: Acute Asessment and Plan: as above (3) Polysubstance abuse: Status: Acute (4) Alcohol abuse: Status: Chronic (5) Discharge planning issues: Status: Acute Discharge Plan Disposition Patient Disposition: [facility] Condition: Stable Discharge Details Chief Complaint: PsychEval Clinical Impression: Psychosis, Substance abuse Reason For Visit: PSYCHOSIS, ALCOHOL AND DRUG ABUSE Admit Date/Time: 02/09/20 22:08 Admit Provider: Latasha Horowitz Attending Provider: Latasha Horowitz Primary Care Provider: Saqib Quiroga ED Provider: Paulino Mcintyre [facility] Course Hospital Course: 24-year-old male with a past medical history of unspecified psychotic disorder and chronic polypharmacy drug abuse including narcotics, THC, and cocaine who presents with acute exacerbation of psychosis manifested by auditory hallucinations and suicidal and homicidal ideation. He was brought in by his family because of aggressive and labile behavior and concern for risky behavior including cleaning of his gun while making statements of some body could get hurt soon if they do not stop the voices. Patient was admitted as an involuntary emergency evaluation admission for acute psychosis. Second certification was performed by a state psychiatrist who agreed that he needs hospitalization. During his hospitalization he required multiple antipsychotic medications including Zyprexa and Haldol which were tried emergency department in addition to benzodiazepines and Benadryl. Eventually calm down in the emergency room with the use of ketamine. However after being hospitalized he exhibited more aggressive behavior along with continued auditory hallucinations and required repeated treatments with IM Valium as well as Benadryl and Thorazine (he had pulled out his IV and therefore IM medications were used. Combination of high-dose Valium at 20 mg IM and Benadryl 50 mg IM and Thorazine 50 mg IM seem to work the best in terms of controlling his symptoms including a reduction in his auditory hallucinations and improved sleep. A lower dose of Thorazine 25 mg had been tried initially without success. At this time the patient needs ongoing inpatient psychiatric treatment as well as reinstitution of antipsychotic oral medications. He has been accepted to the [facility] in [place], [place]. Home Meds and New Rx's Prescriptions: No Action olanzapine [Zyprexa] 10 mg tablet 10 mg PO DAILY Qty: 30 RF: 1 lorazepam [Ativan] 1 mg tablet 1 mg PO QID PRN PRN (Reason: anxiety) Qty: 30 RF: 0 Discharge Instructions Instructions: Bipolar Disorder (DC), Help Prevent Suicide (DC) Activity:: Activity as Tolerated Equipment/Supplies:: No Equipment Needed Diet:: As Tolerated Discharge Orders Discharge Orders: Discharge Order (Routine); Ordered 02/11/20 Ordered By: Robbi Carcamo DS: Summary Status at Discharge Functional status at discharge: independent ambulation Overall status at discharge: patient is not back to baseline Mental Status: other Speech and Movement: agitated Mood: other Affect: hostile Time Spent with Patient providing and/or coordinating discharge services: Less than 30 minutes Exam Narrative Exam Narrative: Patient remains agitated, still w/ auditory hallucinations; constantly walking around the room and threatening to leave. Patient had to be medicated again w/ thorazine and benadryl to calm him down prior to transport to [facility]. Psych Mental Status: other Speech and Movement: agitated Mood: other Affect: hostile DS: Data Vitals/I&O Vitals and I&O: Vital Signs Temperature 37.1 C 02/11/20 12:53 Temperature Source Temporal Artery Scan 02/11/20 12:53 Pulse 98 H 02/11/20 12:53 Pulse 112 H 02/10/20 10:02 Respiratory Rate 18 02/11/20 12:53 Respiratory Effort 02/11/20 12:53 Respiratory Depth Normal 02/11/20 12:53 Respiratory Pattern Normal 02/11/20 12:53 Blood Pressure 136/79 02/11/20 11:01 Blood Pressure Mean 91 02/11/20 11:01 Blood Pressure Position Supine 02/10/20 23:45 Pulse Oximetry 100 02/11/20 12:53 Oxygen Delivery Method Room Air 02/11/20 12:53 Oxygen Flow Rate 0 02/11/20 12:53 Pain Level 0 02/11/20 12:53 Intake & Output 02/10/20 02/11/2002/10/20 23:59 11:59 23:59 Intake Total 1000 / 1000 Balance 1000 / 1000 Weight 86.2 kg Intake: Oral 1000 / 1000 Other: Stool Size Large Stool Characteristics Formed Data Completed and Pending Labs on day of discharge: Labs from last 24 hours 02/09/20 20:15 COVID-19 PCR Negative Nasopharyn COVID-19 PCR Not Applicable Ref Test Perform Site [facility] Medical History (Updated 02/09/20 @ 23:33 by Latasha Horowitz MD) Alcoholism (Acute) 07/02/19 Abstinent 24 days Other mixed anxiety disorders (Acute 06/27/16) Psychosis (Acute) Substance abuse (Acute) Surgical History (Updated 02/09/20 @ 23:22 by Latasha Horowitz MD) No pertinent past surgical history (Acute) Family History Mother Systemic lupus erythematosus Sickle cell trait Father Essential hypertension Grandfather Neoplasm ABDOMINAL Grandmother Neoplasm LUNG Other No problems noted. Maternal History Diabetes Social History Smoking/Tobacco Use Status: Current every day Tobacco Type: cigarettes Alcohol Intake: current Alcohol type: beer, wine and hard liquor Drug use: Daily Substance use type: marijuana Do you feel safe at home: Yes Do you feel safe in your relationship?: Yes
--- NOTE | 2020-02-11 14:40 | PDOC.CMDIS ---
- If Service Date Differs Date of service: 02/11/20 Time of Service: 14:40 LACE Index Scoring Tool - Questions: Length of Stay (in days): 2 Acuity (Admit via E.D.?): Yes Care Management Discharge Reason for Hospitalization: Psychiatric Discharge Plan: Attila is being transfered to [facility] for [facility] stabelization. 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 He is eligible for psychiatric services through the [facility]. CM will follow up with his Mother and explain that she needs to assist him in completing paperwork to receive servcies through the [place] adminstration. Attila is aggitated once he is made aware that he is transfering to [facility]. He received additional medications per provider to decrease anxiety and manage his symptoms. [facility] arranged transport to [facility]. Patient/Family Education Needs: Transfer to [facility] - MH Services (Omit if N/A) Current MH Services: Psychiatric Inp
[2020-02-11 16:30] VITALS: BP 128/78; PULSE 95; RESP 18; TEMP 36.6; O2SAT 98
--- NOTE | 2020-02-12 09:14 | PDOC.MHCN_ITS ---
Date of service: 02/11/20 Time of Service: 10:33 Mental Health Crisis Note Presenting Issue How did you arrive at the ED and why did you come: The clt was already on EE status. The clt has been highly irradiate and potentially violent. Precipitating Factors Clt is at extreme risk. The clt has lashed out at hospital personnel. Code urban's have been called. It appears that when the clt is asked questions the clt will be increasingly agitated and become violent threatening self and others. This was reported by hospital staff this worker didn't see the clt because it may be triggering to him. Disposition BEHAVIOR: Clt reported to highly violent when agitated. The clt appeared calmer today. EYE CONTACT: Improved MOOD: Improved AFFECT: Calmer APPETITE: N/A SLEEP(trouble falling/staying asleep: Clt was reported to be sleeping better. Plan Clt was transported to [facility] later that day. Signature Clinician's Name/Title: Nils Junior MS [facility]
== END 2020-02-11 16:30 | disposition short-term general hospital (02) | DRG 885 ==
LOC: ER 23:18 → ICU 23:56
PROVIDERS: Physician Assistant; Student in an Organized Health Care Education/Training Program; Admitting Provider Internal Medicine; Emergency Provider Emergency Medicine; PCP Family Medicine; Visit Provider Internal Medicine
DX: F29 Unspecified psychosis not due to a substance or known physiological condition (principal); R45.851 Suicidal ideations; F14.10 Cocaine abuse, uncomplicated; F11.10 Opioid abuse, uncomplicated; F12.10 Cannabis abuse, uncomplicated; R45.850 Homicidal ideations; Z78.1 Physical restraint status; F10.20 Alcohol dependence, uncomplicated; F17.210 Nicotine dependence, cigarettes, uncomplicated
CPT/HCPCS: 36415; 80048; 80053; 80307; 93005; 96372; 99232; 99238; 99285; 99291; U0003; 80320; 82607; 82728; 82746; 83540; 83550; 83735; 84443; 85025; 93010; J1200; J3230; J3360

== ENCOUNTER 2020-03-17 00:50 | Outpatient (RCR) | payer MEDICAID, SELFPAY ==
[2020-03-17 07:54] LABS: *AMPHETAMINES SCREEN URINE Negative (Negative); *BARBITURATES SCREEN URINE Negative (Negative); *BENZODIAZEPINES SCREEN URINE Negative (Negative); Cannabinoids THC POSITIVE (Negative); Cocaine Screen,Urine Negative (Negative); METHADONE URINE SCREEN Negative (Negative); OPIATES URINE SCREEN Negative (Negative)
[2020-03-17 08:08] LABS: Tricyclic Antidepressants Negative (Negative)
[2020-03-17] MEDS: Naltrexone Microspheres 380 MG SYRINGE IM (08:17)
== END 2020-03-25 23:59 | disposition home or self-care (01) ==
LOC: INF 00:50
PROVIDERS: PCP Family Medicine; Visit Provider Family Medicine
DX: F10.10 Alcohol abuse, uncomplicated (principal); F19.10 Other psychoactive substance abuse, uncomplicated
CPT/HCPCS: 80307; 96372

== ENCOUNTER 2020-04-15 04:30 | Outpatient (RCR) | payer MEDICAID, SELFPAY ==
[2020-04-15 07:54] LABS: *AMPHETAMINES SCREEN URINE Negative (Negative); *BARBITURATES SCREEN URINE Negative (Negative); *BENZODIAZEPINES SCREEN URINE Negative (Negative); Cannabinoids THC POSITIVE (Negative); Cocaine Screen,Urine Negative (Negative); METHADONE URINE SCREEN Negative (Negative); OPIATES URINE SCREEN Negative (Negative)
[2020-04-15 07:56] LABS: Tricyclic Antidepressants Negative (Negative)
[2020-04-15] MEDS: Naltrexone Microspheres 380 MG SYRINGE IM (08:00)
== END 2020-04-25 23:59 | disposition home or self-care (01) ==
LOC: INF 04:30
PROVIDERS: Visit Provider Family Medicine
DX: F10.10 Alcohol abuse, uncomplicated (principal)
CPT/HCPCS: 80307; 96372

== ENCOUNTER 2020-05-19 07:23 | Outpatient (RCR) | payer MEDICAID, SELFPAY ==
[2020-05-19 08:05] LABS: *AMPHETAMINES SCREEN URINE Negative (Negative); *BARBITURATES SCREEN URINE Negative (Negative); *BENZODIAZEPINES SCREEN URINE Negative (Negative); Cannabinoids THC POSITIVE (Negative); Cocaine Screen,Urine Negative (Negative); METHADONE URINE SCREEN Negative (Negative); OPIATES URINE SCREEN Negative (Negative)
[2020-05-19 08:14] LABS: Tricyclic Antidepressants Negative (Negative)
[2020-05-19] MEDS: Naltrexone Microspheres 380 MG SYRINGE IM (08:55)
== END 2020-05-25 23:59 | disposition home or self-care (01) ==
LOC: INF 07:23
PROVIDERS: Visit Provider Family Medicine
DX: F10.10 Alcohol abuse, uncomplicated (principal); F19.10 Other psychoactive substance abuse, uncomplicated
CPT/HCPCS: 80307; 96372

== ENCOUNTER 2020-05-25 15:50 | Outpatient (REF) | payer MEDICAID, SELFPAY ==
[2020-05-28 19:08] LABS: Patient Race White; SARS-CoV-2 RNA Undetected (Undetected); SARS-CoV-2 Specimen Source Nasal
== END 2020-05-25 16:10 ==
LOC: NCHCN 15:50
PROVIDERS: Visit Provider Family Medicine
DX: Z20.828 Contact with and (suspected) exposure to other viral communicable diseases (principal)
CPT/HCPCS: U0003

== ENCOUNTER 2020-06-16 03:16 | Outpatient (RCR) | payer MEDICAID, SELFPAY ==
[2020-06-16 08:57] LABS: *AMPHETAMINES SCREEN URINE Negative (Negative); *BARBITURATES SCREEN URINE Negative (Negative); *BENZODIAZEPINES SCREEN URINE Negative (Negative); Cannabinoids THC POSITIVE (Negative); Cocaine Screen,Urine Negative (Negative); METHADONE URINE SCREEN Negative (Negative); OPIATES URINE SCREEN Negative (Negative)
[2020-06-16 08:59] LABS: Tricyclic Antidepressants Negative (Negative)
[2020-06-16] MEDS: Naltrexone Microspheres 380 MG SYRINGE IM (09:08)
== END 2020-06-25 23:59 | disposition home or self-care (01) ==
LOC: INF 03:16
PROVIDERS: Visit Provider Family Medicine
DX: F10.10 Alcohol abuse, uncomplicated (principal); F19.10 Other psychoactive substance abuse, uncomplicated
CPT/HCPCS: 80307; 96372

== ENCOUNTER 2020-07-19 02:02 | Outpatient (RCR) | payer MEDICAID, SELFPAY ==
[2020-07-19 07:47] LABS: *AMPHETAMINES SCREEN URINE Negative (Negative); *BARBITURATES SCREEN URINE Negative (Negative); *BENZODIAZEPINES SCREEN URINE Negative (Negative); Cannabinoids THC POSITIVE (Negative); Cocaine Screen,Urine Negative (Negative); METHADONE URINE SCREEN Negative (Negative); OPIATES URINE SCREEN Negative (Negative)
[2020-07-19 07:49] LABS: Tricyclic Antidepressants Negative (Negative)
[2020-07-19] MEDS: Naltrexone Microspheres 380 MG SYRINGE IM (08:08)
== END 2020-07-25 23:59 | disposition home or self-care (01) ==
LOC: INF 02:02
PROVIDERS: Visit Provider Family Medicine
DX: F10.10 Alcohol abuse, uncomplicated (principal); F19.10 Other psychoactive substance abuse, uncomplicated
CPT/HCPCS: 80307; 96372

== ENCOUNTER 2020-07-19 14:50 | Outpatient (REF) | payer MEDICAID, SELFPAY ==
[2020-07-19 19:33] LABS: HCT 47.1 % (40.0-50.0); HGB 14.4 g/dL (13.5-17.5); MCH 21.5 pg (27.0-33.0); MCHC 30.6 % (32.0-36.0); MCV 70.2 fL (80-95); MPV 10.7 fL (8.0-11.0); Platelet Count 317 10^3/uL (130-400); RBC 6.71 10^6/uL (4.36-5.78); RDW-SD 34.8 fL; WBC 5.66 10^3/uL (4.4-10.8)
[2020-07-19 19:48] LABS: ALT 22 U/L (16-63); AST 16 U/L (15-37); Albumin 4.1 g/dL (3.4-5.0); Alkaline Phosphatase 57 U/L (46-116); Anion Gap 7.4 mmol/L (3-11); BUN 11 mg/dL (7-18); Bilirubin, Total 0.4 mg/dL (0.2-1.0); CO2 26.6 mmol/L (21.0-32.0); CREATININE 0.92 mg/dL (0.70-1.30); Calcium 9.3 mg/dL (8.5-10.1); Chloride 104 mmol/L (98-107); Glucose 85 mg/dL (74-106); Potassium 4.4 mmol/L (3.5-5.1); Sodium 138 mmol/L (136-145); Total Protein 7.4 g/dL (6.4-8.2)
[2020-07-21 10:44] LABS: HIV-1/2 Ag & Ab Screen Negative (Negative)
[2020-07-21 11:03] LABS: Hepatitis C Ab w Rflx HCV PCR Negative (Negative)
== END 2020-07-19 15:10 ==
LOC: NCHCN 14:50
PROVIDERS: Visit Provider Family Medicine
DX: Z87.898 Personal history of other specified conditions (principal); Z11.59 Encounter for screening for other viral diseases; Z11.4 Encounter for screening for human immunodeficiency virus [HIV]; F10.11 Alcohol abuse, in remission
CPT/HCPCS: 80053; 85027; 86803; 87389

== ENCOUNTER 2020-08-17 01:38 | Outpatient (RCR) | payer MEDICAID, SELFPAY ==
[2020-08-17 07:46] LABS: *AMPHETAMINES SCREEN URINE Negative (Negative); *BARBITURATES SCREEN URINE Negative (Negative); *BENZODIAZEPINES SCREEN URINE Negative (Negative); Cannabinoids THC POSITIVE (Negative); Cocaine Screen,Urine Negative (Negative); METHADONE URINE SCREEN Negative (Negative); OPIATES URINE SCREEN Negative (Negative); Tricyclic Antidepressants Negative (Negative)
[2020-08-17] MEDS: Naltrexone Microspheres 380 MG SYRINGE IM (07:50)
== END 2020-08-25 23:59 | disposition home or self-care (01) ==
LOC: INF 01:38
PROVIDERS: PCP Family Medicine; Visit Provider Family Medicine
DX: F10.10 Alcohol abuse, uncomplicated (principal); F19.10 Other psychoactive substance abuse, uncomplicated
CPT/HCPCS: 80307; 96372

== ENCOUNTER 2020-11-16 16:32 | Outpatient (REF) | payer MEDICAID, SELFPAY ==
[2020-11-16 15:48] LABS: HCT 46.4 % (40.0-50.0); HGB 14.7 g/dL (13.5-17.5); MCH 21.8 pg (27.0-33.0); MCHC 31.7 % (32.0-36.0); MCV 68.8 fL (80-95); MPV 11.4 fL (8.0-11.0); Platelet Count 292 10^3/uL (130-400); RBC 6.74 10^6/uL (4.36-5.78); RDW 14.2 % (11.8-14.1); RDW-SD 33.4 fL
[2020-11-16 16:08] LABS: ALT 39 U/L (16-63); AST 24 U/L (15-37); Alkaline Phosphatase 57 U/L (46-116); Anion Gap 11.3 mmol/L (3-11); BUN 18 mg/dL (7-18); Bilirubin, Total 0.4 mg/dL (0.2-1.0); CO2 26.7 mmol/L (21.0-32.0); CREATININE 0.9 mg/dL (0.70-1.30); Calcium 9.8 mg/dL (8.5-10.1); Chloride 104 mmol/L (98-107); Glucose 105 mg/dL (74-106); Potassium 4.7 mmol/L (3.5-5.1); Sodium 142 mmol/L (136-145); Total Protein 7.2 g/dL (6.4-8.2)
[2020-11-16 16:19] LABS: VALPROIC ACID 93.6 ug/mL (50-100)
== END 2020-11-16 16:33 | disposition home or self-care (01) ==
LOC: NCHCN 16:32
PROVIDERS: PCP Family Medicine; Visit Provider Family Medicine
DX: F31.2 Bipolar disorder, current episode manic severe with psychotic features (principal); Z51.81 Encounter for therapeutic drug level monitoring; Z79.899 Other long term (current) drug therapy
CPT/HCPCS: 80053; 85027; 80164

== ENCOUNTER 2020-12-23 00:06 | Emergency (ER) | payer MEDICAID, SELFPAY ==
[2020-12-23] VITALS (10 sets, daily range): PULSE 74–112; RESP 16–18; O2SAT 95–97
[2020-12-23] MEDS: diphenhydrAMINE 50 MG/ML VIAL ×2 (00:28→11:47)
[2020-12-23] MEDS: Haloperidol 5 MG/ML VIAL ×2 (00:28→11:47)
[2020-12-23] MEDS: LORazepam 2 MG/ML VIAL ×2 (00:29→11:47)
--- NOTE | 2020-12-23 00:35 | NUR.NOTE ---
Addendum entered by Velia Cotton 12/23/20 00:56: Verbal orders placed for medications at 0020. Original Note: VSP brought pt in for HI statements. Pt verbally escalated. Threatening staff, swearing and cussing. MD placed orders for medication. VSP remained at bedside. Pt again verbally threatening, and aggressive towards staff and VSP. Lunging in the doorway. Pt then put in restraints at 0032. Pt remains threatening to MD and staff. DR FERNANDEZ! YOUR GETTING F SUED! Calling staff derogatory terms. Pt now stated TOMORROW EVERYONE WILL GET PUMPED AND !
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
[2020-12-23] MEDS: Haloperidol 5 MG/ML VIAL IM (03:05)
--- NOTE | 2020-12-23 07:51 | NUR.NOTE ---
Nursing Note: Patient verbally shouting I am going to kill all of you. I'm going to kill your family .
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
[2020-12-23 10:53] LABS: Abs Immature Grans 0.03 10^3/uL (0.0-0.06); Absolute Basophil Count 0.08 10^3/uL (0.0-0.2); Absolute Eosinophil Count 0.54 10^3/uL (0.0-0.7); Absolute Lymphocyte Count 2.19 10^3/uL (1.2-3.4); Absolute Monocyte Count 0.76 10^3/uL (0.1-0.8); Absolute Neutrophil Count 5.03 10^3/uL (1.2-6.7); Basophils % 0.9; Eosinophils % 6.3; HCT 42.4 % (40.0-50.0); HGB 13.6 g/dL (13.5-17.5); Immature Grans % 0.3; Lymphocytes % 25.4; MCH 21.9 pg (27.0-33.0); MCHC 32.1 % (32.0-36.0); MCV 68.4 fL (80-95); MPV 10.2 fL (8.0-11.0); Monocytes % 8.8; Neutrophils % 58.3; Nucleated RBC 0 %; Platelet Count 296 10^3/uL (130-400); RDW 14.9 % (11.8-14.1); RDW-SD 35.4 fL; WBC 8.63 10^3/uL (4.4-10.8)
--- NOTE | 2020-12-23 10:57 | NUR.NOTE ---
Nursing Note: 10:44 this RN and Emergency Department EMT, Igor, went into patient room and got verbal permission to draw blood. Patient was physically cooperative but was verbally yelling at staff during the process. He stated I don't want any more meds. If i get any more meds I will fucking kill you all.
--- NOTE | 2020-12-23 10:59 | NUR.NOTE ---
Nursing Note: Dr. Jennings was talking to the patient who was verbally shouting. He stated as she walked away I'l take that license and shove it up your ass.
--- NOTE | 2020-12-23 11:07 | NUR.NOTE ---
Nursing Note:@ 1107am, patient remains at room door, not wanting to close door, will not follow staff requests. Patient remains making verbal threats to staff, claiming he will kill all of us. verbally threatening this person, saying he will kill me. 1:1 continues with this person at bedside. JUANC, EMT
[2020-12-23 11:20] LABS: ALT 21 U/L (16-63); AST 28 U/L (15-37); Albumin 3.1 g/dL (3.4-5.0); Alkaline Phosphatase 58 U/L (46-116); Anion Gap 9.4 mmol/L (3-11); BUN 11 mg/dL (7-18); Bilirubin, Total 0.4 mg/dL (0.2-1.0); CO2 28.6 mmol/L (21.0-32.0); CREATININE 0.9 mg/dL (0.70-1.30); Calcium 8.7 mg/dL (8.5-10.1); Chloride 105 mmol/L (98-107); ETHANOL BLOOD 3.2 mg/dL (<3); Glucose 94 mg/dL (74-106); Potassium 4.2 mmol/L (3.5-5.1); Sodium 143 mmol/L (136-145); TSH 3.82 uIU/mL (0.36-3.74); Total Protein 6.7 g/dL (6.4-8.2)
[2020-12-23 11:21] LABS: Salicylate < 2.8 mg/dL (<2.8)
[2020-12-23 11:22] LABS: VALPROIC ACID 30.5 ug/mL (50-100)
[2020-12-23 11:23] LABS: Acetaminophen < 2 ug/mL (10-30)
[2020-12-23 11:36] LABS: Diff Comment Diff Reviewed; Hypochromasia 1+; Microcytosis 2+
--- NOTE | 2020-12-23 11:49 | NUR.NOTE ---
Addendum entered by Jovanna Spicer 12/23/20 12:06: Medication was given at 11:47 Original Note: Nursing Note: Patient attempted to leave the Emergency Department. He walked out through the front door. Checo Roa was called. This RN & EMT Igor followed patient into the lobby where the deputy sheriff generalist/bailiff met him. Patient walked out of the department swearing & screaming saying I am getting out of here. Photographic Processor walked into the vestibule & spoke to the patient saying come on Ishaan let's go back inside. Patient then came back into the Emergency Department lobby where he said I don't want to go back inside he turned to this RN and stated I'm going to smack your ass. Patient turned and began to walk towards this RN with chest puffed out stating I'm going to elizabeth everyone and kill you all. EMT Igor verbally told the patient Let's go back to your room Ishaan. Patient turned and walked back into the department mumbling. Patient grabbed a face shield as he walked down the taylor from the wall and put it on. When patient got to his room he continued to verbally shout I'm going to kill you all. VSP was called. Medication was ordered by Dr. Jennings-- Benadryl 50mg IV, Haldol 5mg IV, and Ativan 2mg IV. VSP arrived & along with staff members went into the patient room. The patient cooperated to laying in bed but continued to verbally shout. Dr. Jennings asked the patient if he would take the medication. The patient verbally agreed to take medication at this time. This RN and RN Joselyn Meyers entered the room with the ordered medication. They told the patient they were going to give him the meds in both of his arms, he verbally agreed, and the meds were given. Patient continued to talk to VSP in the room appropriately & quietly for a few minutes. Checo Roa was cleared. Patient continued to lay in bed quietly. CPSO in place.
--- NOTE | 2020-12-23 11:53 | CMSP_ITS ---
- If Service Date Differs Date of service: 12/23/20 Time of Service: 11:53 Care Management Safety Plan Status: Involuntary INVOLUNTARY FOR INPATIENT PSYCHIATRIC STABILIZATION. An informal huddle is held at 11:[address] Jennings, ED provider, Cailin, nursing sewage plant supervisor, RAJAN Art, and HEIKE Saucedo. Safety plan has been established to meet the needs of the patient, and consideration of the care team, to adhere to patient goals, identify restrictions based on behavioral status, address nutrition, and determine allowed personal belongings, tools for hygiene and personal care. Determine level of activity including ambulation, level of supervision, visitors, and determine privileges based on behaviors and level of engagement by pt. SAFETY PLAN: 1. Will remain on SI/HI precautions. In Paper Clothes 2. Will remain in room under direct supervision of one-on-one staff at all times provided by CPSO, CARLOS ENRIQUE, FARM MACHINERY SET UP MECHANIC banbury operator. 3. May have paper cups, plates, finger foods as well as a cardboard spoon 4. Follow [facility] Management of the Admitted Behavioral Health Patient policy. 5. Comfort bath system only. 6. No personal belongings. 7. Visitors: None. 8. Activities: Coloring books, crayons, soft cart items, and other activities based on Attila's behavior and at RN discretion. 9. Bathroom privileges with escort. 10. Phone: Phone use is based on behavior and is at RN discretion. 11. Due to INVOLUNTARY status, patient is being held at [facility] by the Department of Mental Health ([facility]) until 2nd certification by [facility] Psychiatrist can be performed (within 24 hours). Staff will provide de-escalation support (CPI) as needed. If patient wishes to leave [facility], staff will contact [facility] Crisis Screener ([phone]) and On-Call Warble Saw Operator ([phone]) as soon as possible. In the event of elopement, notify [place] State Police ([phone]). Patient is currently involuntarily at [facility]. [facility] Frontline Rn Transplant will continue seeking placement. Please contact the Head Mechanic Warble Saw Operator ([phone]) for any needed changes to Safety Plan. Safety plan has been provided to interdepartmental care team. Patient will be transported by [employer] at time of discharge.
--- NOTE | 2020-12-23 11:53 | PDOC.CMSAFED ---
- If Service Date Differs Date of service: 12/23/20 Time of Service: 11:53 Care Management Safety Plan Status: Involuntary INVOLUNTARY FOR INPATIENT PSYCHIATRIC STABILIZATION. An informal huddle is held at 11:[address] Jennings, ED provider, Cailin, nursing asbestos removal supervisor, RAJAN Art, and HEIKE Saucedo. Safety plan has been established to meet the needs of the patient, and consideration of the care team, to adhere to patient goals, identify restrictions based on behavioral status, address nutrition, and determine allowed personal belongings, tools for hygiene and personal care. Determine level of activity including ambulation, level of supervision, visitors, and determine privileges based on behaviors and level of engagement by pt. SAFETY PLAN: 1. Will remain on SI/HI precautions. In Paper Clothes 2. Will remain in room under direct supervision of one-on-one staff at all times provided by CPSO, CARLOS ENRIQUE, WARP CHANGER horticulture worker. 3. May have paper cups, plates, finger foods as well as a cardboard spoon 4. Follow [facility] Management of the Admitted Behavioral Health Patient policy. 5. Comfort bath system only. 6. No personal belongings. 7. Visitors: None. 8. Activities: Coloring books, crayons, soft cart items, and other activities based on Attila's behavior and at RN discretion. 9. Bathroom privileges with escort. 10. Phone: Phone use is based on behavior and is at RN discretion. 11. Due to INVOLUNTARY status, patient is being held at [facility] by the Department of Mental Health ([facility]) until 2nd certification by [facility] Psychiatrist can be performed (within 24 hours). Staff will provide de-escalation support (CPI) as needed. If patient wishes to leave [facility], staff will contact [facility] Crisis Screener ([phone]) and On-Call Adobe Developer ([phone]) as soon as possible. In the event of elopement, notify [place] State Police ([phone]). Patient is currently involuntarily at [facility]. [facility] Frontline Pan Helper will continue seeking placement. Please contact the Electrical Assembly Technician Adobe Developer ([phone]) for any needed changes to Safety Plan. Safety plan has been provided to interdepartmental care team. Patient will be transported by [employer] at time of discharge.
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
[2020-12-23 16:37] LABS: FREE T4 0.73 ng/dL (0.76-1.46)
[2020-12-23] MEDS: Haloperidol 5 MG/ML VIAL 4 MG IM (17:45)
[2020-12-23] MEDS: Midazolam 2 MG/2 ML VIAL 4 MG IM (17:45)
[2020-12-23] MEDS: diphenhydrAMINE 50 MG/ML VIAL 25 MG IM (17:45)
[2020-12-23] MEDS: Ketamine 500 MG/10 ML VIAL 400 MG IM (18:05)
--- NOTE | 2020-12-23 19:12 | NUR.NOTE ---
Nursing Note: Patient pacing around the emergency department. Dr. Shipman & Joselyn Meyers RN redirected patient back to his room. Once in his room patient was verbally screaming swears and threats to the staff stating I'll smash that over your fucking head. Patient put rubber gloves on, paced around the room swearing. Patient was threatening to harm staff. Checo branch & NIA were called.
--- NOTE | 2020-12-23 19:14 | NUR.NOTE ---
Nursing Note: Patient was placed in 4 point restraints. This RN and Joselyn Meyers RN entered the room where staff was with patient to give medication. Patient stated I have all of you in the same room, I will kill you all with one shot.
[2020-12-23 19:17] LABS: Source Nasal/Nares
--- NOTE | 2020-12-23 19:47 | NUR.NOTE ---
Nursing Note: Assumed care from Wilma DAMICO. Upon arrival, pt remains yelling out and making demands. Pt remains in the 4 point restraints at this time. Will continue to monitor.
[2020-12-23] MEDS: OLANZapine 10 MG TAB PO (20:17)
[2020-12-23 21:15] LABS: Bilirubin Negative (Negative); Blood Negative (Negative); Clarity Clear (Clear); Glucose Negative (Negative); Ketones Negative (Negative); Leukocyte Esterase Negative (Negative); Nitrite Negative (Negative); pH 7.5 (5-8)
[2020-12-23 21:50] LABS: *AMPHETAMINES SCREEN URINE Negative (Negative); *BARBITURATES SCREEN URINE Negative (Negative); *BENZODIAZEPINES SCREEN URINE Positive (Negative); Cannabinoids THC Positive (Negative); Cocaine Screen,Urine Negative (Negative); METHADONE URINE SCREEN Negative (Negative); OPIATES URINE SCREEN Negative (Negative)
[2020-12-23 21:56] LABS: Tricyclic Antidepressants Positive (Negative)
[2020-12-23 22:33] LABS: COVID-19 PCR Negative (Negative)
[2020-12-24] MEDS: Divalproex 500 MG TABEC PO (05:50)
--- NOTE | 2020-12-24 08:43 | NUR.NOTE ---
Nursing Note: pt aggressive and coming out of room. patient medicated and placed in restraints.
[2020-12-24 08:45] VITALS: BP 173/93; PULSE 143; PULSE 147; RESP 25; O2SAT 98
[2020-12-24] MEDS: Ketamine 500 MG/10 ML VIAL IM (08:45)
[2020-12-24] MEDS: Haloperidol 5 MG/ML VIAL IM (08:45)
[2020-12-24] MEDS: diphenhydrAMINE 50 MG/ML VIAL (08:45)
[2020-12-24] MEDS: LORazepam 2 MG/ML VIAL IM (08:45)
[2020-12-24 08:46] VITALS: PULSE 146; RESP 23; O2SAT 98
[2020-12-24 09:16] VITALS: BP 153/96; PULSE 105; PULSE 98; RESP 20; O2SAT 95
[2020-12-24 09:17] VITALS: PULSE 101; RESP 18; O2SAT 95
--- NOTE | 2020-12-24 09:20 | CMSP_ITS ---
- If Service Date Differs Date of service: 12/24/20 Time of Service: 13:39 Care Management Safety Plan Status: Involuntary INVOLUNTARY FOR INPATIENT PSYCHIATRIC STABILIZATION. CM reviewed current status with TODD Art [facility] refer to her note for further in formation. She reports anticipating Attila will transfer to [facility] when a bed becomes available. He continues to require daily CODE JACOBO responses due to unsafe behaviors. No change to plan at this time. Safety plan has been established to meet the needs of the patient, and consideration of the care team, to adhere to patient goals, identify restrictions based on behavioral status, address nutrition, and determine allowed personal belongings, tools for hygiene and personal care. Determine level of activity including ambulation, level of supervision, visitors, and dete rmine privileges based on behaviors and level of engagement by pt. SAFETY PLAN: 1. Will remain on SI/HI precautions. In Paper Clothes 2. Will remain in room under direct supervision of one-on-one staff at all times provided by CPSO, HOME ECONOMIST CONSUMER SERVICE, PERSONNEL REPRESENTATIVE material distributor. 3. May have paper cups, plates, finger foods as well as a cardboard spoon 4. Follow [facility] Management of the Admitted Behavioral Health Patient policy. 5. Comfort bath system only. 6. No personal belongings permitted at this time. 7. Visitors: No visitors permitted at this time. 8. Activities: Coloring books, crayons, soft cart items, and other activities permitted per Attila's behavior at RN discretion. 9. Bathroom privileges with escort. 10. Phone: Limited to legal contact at this time, personal calls based on behavior at RN discretion. 11. Due to INVOLUNTARY status, patient is being held at [facility] by the Department of Mental Health (DM) until 2nd certification by [facility] Psychiatrist can be performed (within 24 hours). Staff will provide de-escalation support (CPI) as needed. If patient wishes to leave [facility], staff will contact [facility] Crisis Screener ([phone]) and On-Call Personal Trainer ([phone]) as soon as possible. In the event of elopement, notify [facility] Police ([phone]). Patient is currently involuntarily at [facility]. [facility] Frontline Head Of Stock will continue seeking placement. Please contact the Fabric Designer Personal Trainer ([phone]) for any needed changes to Safety Plan. Safety plan has been provided to interdepartmental care team. Patient will be transported by [facility] at time of discharge.
--- NOTE | 2020-12-24 09:20 | PDOC.CMSAFED ---
- If Service Date Differs Date of service: 12/24/20 Time of Service: 13:39 Care Management Safety Plan Status: Involuntary INVOLUNTARY FOR INPATIENT PSYCHIATRIC STABILIZATION. CM reviewed current status with TODD Art [facility] refer to her note for further information. She reports anticipating Attila will transfer to [facility] when a bed becomes available. He continues to require daily CODE JACOBO responses due to unsafe behaviors. No change to plan at this time. Safety plan has been established to meet the needs of the patient, and consideration of the care team, to adhere to patient goals, identify restrictions based on behavioral status, address nutrition, and determine allowed personal belongings, tools for hygiene and personal care. Determine level of activity including ambulation, level of supervision, visitors, and determine privileges based on behaviors and level of engagement by pt. SAFETY PLAN: 1. Will remain on SI/HI precautions. In Paper Clothes 2. Will remain in room under direct supervision of one-on-one staff at all times provided by CPSO, POLICE OFFICER BOOKING, ELECTRICAL TESTS SUPERVISOR guard supervisor. 3. May have paper cups, plates, finger foods as well as a cardboard spoon 4. Follow [facility] Management of the Admitted Behavioral Health Patient policy. 5. Comfort bath system only. 6. No personal belongings permitted at this time. 7. Visitors: No visitors permitted at this time. 8. Activities: Coloring books, crayons, soft cart items, and other activities permitted per Attila's behavior at RN discretion. 9. Bathroom privileges with escort. 10. Phone: Limited to legal contact at this time, personal calls based on behavior at RN discretion. 11. Due to INVOLUNTARY status, patient is being held at [facility] by the Department of Mental Health ([facility]) until 2nd certification by [facility] Psychiatrist can be performed (within 24 hours). Staff will provide de-escalation support (CPI) as needed. If patient wishes to leave [facility], staff will contact [facility] Crisis Screener ([phone]) and On-Call Awning Finisher ([phone]) as soon as possible. In the event of elopement, notify [facility] Police ([phone]). Patient is currently involuntarily at [facility]. [facility] Frontline University Teacher will continue seeking placement. Please contact the Dialysis Clinical Manager Awning Finisher ([phone]) for any needed changes to Safety Plan. Safety plan has been provided to interdepartmental care team. Patient will be transported by [facility] at time of discharge.
[2020-12-24 09:30] VITALS: BP 146/86; PULSE 94; PULSE 98; RESP 18
[2020-12-24 09:31] VITALS: PULSE 93; RESP 19; O2SAT 95
[2020-12-24] MEDS: OLANZapine 10 MG TAB PO (09:44)
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
--- NOTE | 2020-12-24 13:41 | NUR.NOTE ---
Nursing Note: OFFERED ATIVAN. DENIES AT THIS TIME.
[2020-12-24] MEDS: LORazepam 1 MG TAB 2 MG PO (16:43)
--- NOTE | 2020-12-24 18:08 | NUR.NOTE ---
Nursing Note: DINNER READY FOR PT. PT RESTING. CALM AT THIS TIME. PT HAD CALLED FATHER AND MOTHER. LOUD/AGGRESSIVE CONVERSATION TOOK PLACE. PT EDUCATED THAT IF HE IS NOT COOPERATIVE PHONE PRIVILEGES WILL BE TAKEN AWAY. PT WAS GIVEN MEDS FOR AGGRESSIVE BEHAVIOR. SEROQUEL GIVEN EARLY PER KRISTAN MAYO.
[2020-12-25] MEDS: Divalproex 500 MG TABEC PO ×2 (00:58→22:25)
[2020-12-25] MEDS: OLANZapine 10 MG VIAL IM (06:03)
--- NOTE | 2020-12-25 08:48 | NUR.NOTE ---
refusing medication. Kaelyn came in to evaluate. pt swearing and out of bed. states he is going to go wherever he wants. walked to door and then back to bed. yelling at top of his voice and swearing. Kaelyn attempting to redirect him to room. Dr. Guzman again reminded he would need medication if he continued to yell
--- NOTE | 2020-12-25 08:53 | NUR.NOTE ---
code urban called
[2020-12-25] MEDS: Haloperidol 5 MG/ML VIAL (08:58)
[2020-12-25] MEDS: LORazepam 2 MG/ML VIAL (09:01)
--- NOTE | 2020-12-25 09:03 | NUTRITION ---
sitting on stretcher, yelled loudly strike, strike, strike has been yelling at hypercil core transformer assembler stating he is the baddest ass in town, I am a badder ass than you money counter and that they are out to get them. Dr. Guzman spoke with pt. he had torn his paper scrubs and showed his buttocks to those in hallway.
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
[2020-12-25 10:06] VITALS: BP 98/69; PULSE 71; RESP 15; O2SAT 96
--- NOTE | 2020-12-25 12:21 | CMSP_ITS ---
- If Service Date Differs Date of service: 12/25/20 Time of Service: 12:21 Care Management Safety Plan Status: Involuntary INVOLUNTARY FOR INPATIENT PSYCHIATRIC STABILIZATION. CM reviewed current status with TODD Art [facility] refer to her note for further in formation. She reports anticipating Attila will transfer to [facility] when a bed becomes available. He continues to require daily CODE JACOBO responses due to unsafe behaviors. No change to plan at this time. Safety plan has been established to meet the needs of the patient, and consideration of the care team, to adhere to patient goals, identify restrictions based on behavioral status, address nutrition, and determine allowed personal belongings, tools for hygiene and personal care. Determine level of activity including ambulation, level of supervision, visitors, and dete rmine privileges based on behaviors and level of engagement by pt. SAFETY PLAN: 1. Will remain on SI/HI precautions. In Paper Clothes 2. Will remain in room under direct supervision of one-on-one staff at all times provided by CPSO, FAGOT MAKER, SET UP MECHANIC STAMPING MACHINES director data. 3. May have paper cups, plates, finger foods as well as a cardboard spoon 4. Follow [facility] Management of the Admitted Behavioral Health Patient policy. 5. Comfort bath system only. 6. No personal belongings permitted at this time. 7. Visitors: No visitors permitted at this time. 8. Activities: Coloring books, crayons, soft cart items, and other activities permitted per Attila's behavior at RN discretion. 9. Bathroom privileges with escort. 10. Phone: Limited to legal contact at this time, personal calls based on behavior at RN discretion. 11. Due to INVOLUNTARY status, patient is being held at [facility] by the Department of Mental Health (DM) until 2nd certification by [facility] Psychiatrist can be performed (within 24 hours). Staff will provide de-escalation support (CPI) as needed. If patient wishes to leave [facility], staff will contact [facility] Crisis Screener ([phone]) and On-Call Land Surveyor ([phone]) as soon as possible. In the event of elopement, notify [facility] Police ([phone]). Patient is currently involuntarily at [facility]. [facility] Frontline Chucking Machine Operator will continue seeking placement. Please contact the Jockey Agent Land Surveyor ([phone]) for any needed changes to Safety Plan. Safety plan has been provided to interdepartmental care team. Patient will be transported by [facility] at time of discharge.
--- NOTE | 2020-12-25 12:21 | PDOC.CMSAFED ---
- If Service Date Differs Date of service: 12/25/20 Time of Service: 12:21 Care Management Safety Plan Status: Involuntary INVOLUNTARY FOR INPATIENT PSYCHIATRIC STABILIZATION. CM reviewed current status with TODD Art [facility] refer to her note for further information. She reports anticipating Attila will transfer to [facility] when a bed becomes available. He continues to require daily CODE JACOBO responses due to unsafe behaviors. No change to plan at this time. Safety plan has been established to meet the needs of the patient, and consideration of the care team, to adhere to patient goals, identify restrictions based on behavioral status, address nutrition, and determine allowed personal belongings, tools for hygiene and personal care. Determine level of activity including ambulation, level of supervision, visitors, and determine privileges based on behaviors and level of engagement by pt. SAFETY PLAN: 1. Will remain on SI/HI precautions. In Paper Clothes 2. Will remain in room under direct supervision of one-on-one staff at all times provided by CPSO, ALUM OPERATOR, COMPENSATION VICE PRESIDENT fence erector supervisor. 3. May have paper cups, plates, finger foods as well as a cardboard spoon 4. Follow [facility] Management of the Admitted Behavioral Health Patient policy. 5. Comfort bath system only. 6. No personal belongings permitted at this time. 7. Visitors: No visitors permitted at this time. 8. Activities: Coloring books, crayons, soft cart items, and other activities permitted per Attila's behavior at RN discretion. 9. Bathroom privileges with escort. 10. Phone: Limited to legal contact at this time, personal calls based on behavior at RN discretion. 11. Due to INVOLUNTARY status, patient is being held at [facility] by the Department of Mental Health ([facility]) until 2nd certification by [facility] Psychiatrist can be performed (within 24 hours). Staff will provide de-escalation support (CPI) as needed. If patient wishes to leave [facility], staff will contact [facility] Crisis Screener ([phone]) and On-Call Remote Operations Producer ([phone]) as soon as possible. In the event of elopement, notify [facility] Police ([phone]). Patient is currently involuntarily at [facility]. [facility] Frontline Prenatal Nurse will continue seeking placement. Please contact the Crime Analyst Remote Operations Producer ([phone]) for any needed changes to Safety Plan. Safety plan has been provided to interdepartmental care team. Patient will be transported by [facility] at time of discharge.
--- NOTE | 2020-12-25 14:26 | NUR.NOTE ---
requested meal and is eating. again requesting to use phone
--- NOTE | 2020-12-25 14:41 | NUR.NOTE ---
requested to use the phone, spoke with mother and escalated. venkat states mother hung up on him. He is yelling how he wants to leave and get fresh air and feels he is dying here in a hospital. states he wants an hand flatwork finisher to come here and make sure this is ok . spoke with DR. Guzman, we will not allow further phone use due to his escalated behaviors when he speaks with parents.
[2020-12-25] MEDS: LORazepam 1 MG TAB 2 MG PO (14:54)
--- NOTE | 2020-12-25 15:01 | NUR.NOTE ---
attempted to walk out of ED. [facility] called and he agreed to walk back to room. He is swearing and yelling. talking with 1:1 sitter and agreed to take Zyprexa 10 mg.
--- NOTE | 2020-12-25 17:42 | NUR.NOTE ---
Naa from mental health came to check on pt
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
--- NOTE | 2020-12-25 19:26 | NUR.NOTE ---
report to MARGAUX Orozco
[2020-12-25] MEDS: LORazepam 1 MG TAB (22:25)
[2020-12-25] MEDS: Ziprasidone 20 MG VIAL IM (22:56)
--- NOTE | 2020-12-25 23:00 | RT.EKG_ITS ---
APPROVED REPORT Exam: Resting ECG Patient Location: E HR:73 bpm ECG Measurements Heart Rate 73 AXIS OK 135 P 50 QRSd 94 QRS 36 QT 367 T 29 QTc 405 Conclusion Sinus rhythm...normal P axis, V-rate 60- 99 Low voltage, precordial leads...precordial leads <1.0mV
[2020-12-25 23:21] VITALS: BP 122/75; PULSE 75; RESP 18; TEMP 37; O2SAT 95
[2020-12-25 23:22] VITALS: PULSE 76
[2020-12-25 23:30] VITALS: PULSE 74
[2020-12-26] VITALS (9 sets, daily range): BP systolic 112–119; BP diastolic 71–86; PULSE 83–116; RESP 18–19; TEMP 36.9–37.1; O2SAT 98
--- NOTE | 2020-12-26 00:22 | NUR.NOTE ---
Nursing Note: Assumed care of patient from LR RN at 1930. Patient had been resting with minimal incident. Around 2200 began to become agitated, asking for phone. Informed him that he we would not be using the phone this evening as it was reported that he escalated after his last phone call. Patient redirectable but still continued to agitated yelling, asking why he's been here for so long and where is his family. Made a few vague threats. Accepted his HS meds plus 2mg of Lorazepam at 2225. Continued to yell and pace. Hospital security in ER in case of escalation. Offered an injection of Geodon which he accepted. Within 10 minutes patient was calm, laying in bed. Allowed this scribe to take VS and perform an EKG per MD order. Slept and cooperative, easily arousable from sleep. Offered food, drink and bathroom each time he awoke. Patient monitored on tele for a short while after administration of medications. Up around 0115, bedding changed and his clothing changed by RN. Patient requested deodorant, smiling and conversing with staff. Back to bed without incident. Will continue to monitor.
--- NOTE | 2020-12-26 03:22 | NUR.NOTE ---
Nursing Note: Patient awoke, offered a shower which he accepted in ER. Very cooperative, smiling. While in shower could be heard arguing with self related to delusions about things blowing up but attempting to calm himself down out loud. Upon exit of shower, offered PO Geodon for his am dose which he accepted. Offered food and drink, accepted drink with his pill and went back to bed. Will continue to monitor.
[2020-12-26] MEDS: Ziprasidone 20 MG CAP PO ×2 (03:30→07:53)
--- NOTE | 2020-12-26 06:19 | NUR.NOTE ---
Nursing Note: Patient continues to exhibit appropriate behaviors, despite delusions that continue he is easily redirectable. No outbursts at all. Update given to state of [place]. Patient is exercising and stretching in [address] and conversing with staff openly and smiling. Has been offered and accepting nutrition from nursing staff. Will continue to monitor.
[2020-12-26] MEDS: Divalproex 500 MG TABEC PO (07:20)
[2020-12-26] MEDS: clonazePAM 1 MG TAB (07:21)
--- NOTE | 2020-12-26 08:30 | RT.EKG_ITS ---
APPROVED REPORT Exam: Resting ECG Patient Location: E HR:95 bpm ECG Measurements Heart Rate 95 AXIS OH 121 P 50 QRSd 89 QRS 44 QT 317 T 25 QTc 400 Conclusion Sinus rhythm...normal P axis, V-rate 60- 99 ST elev, probable normal early repol pattern...ST elevation, age<55 no STEMI, non-diagnostic EKG I have reviewed and interpreted ECG and agree with software generated interpretation.
--- NOTE | 2020-12-26 08:32 | NUR.NOTE ---
patient requesting to use phone. attempting to redirect and distract from this activity as his careplan states he is only allowed to call legal support analyst and patient wants to call his parents to bring him home. when this happened recently it escalated patient's agitation. patient has been accepted to [facility] psychiatric hospital and transportation is being arranged. notified mother of this via phone.
[2020-12-26] MEDS: LORazepam 1 MG TAB 2 MG PO (10:48)
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
== END 2020-12-26 12:30 | disposition still patient (30) ==
PROVIDERS: Emergency Medicine; Physician Assistant; Student in an Organized Health Care Education/Training Program; Emergency Provider Student in an Organized Health Care Education/Training Program; PCP Family Medicine
DX: R45.6 Violent behavior (principal); R45.850 Homicidal ideations; Z20.822 Contact with and (suspected) exposure to COVID-19; Z75.1 Person awaiting admission to adequate facility elsewhere
CPT/HCPCS: 36415; 80053; 80307; 87635; 93005; 96372; 99285; 99291; 80164; 80320; 80329; 81003; 84439; 84443; 85025; 93010; J1200; J1630; J2060; J2250; J3486; J3490

== ENCOUNTER 2021-08-12 10:40 | Outpatient (REF) | payer MEDICAID, SELFPAY ==
[2021-08-13 10:44] LABS: COVID-19 RT-PCR UVMMC Result Negative (Negative)
== END 2021-08-12 10:41 | disposition home or self-care (01) ==
LOC: NCHCN 10:40
PROVIDERS: PCP Family Medicine; Visit Provider Physician Assistant Medical
DX: Z20.822 Contact with and (suspected) exposure to COVID-19 (principal); J06.9 Acute upper respiratory infection, unspecified
CPT/HCPCS: U0003

== ENCOUNTER → 2021-12-25 11:15 | Outpatient (CLI) | payer MEDICAID, SELFPAY ==
--- NOTE | 2021-12-25 10:52 | DI.RAD_ITS ---
Exam(s) XR LUMBAR SPINE COMPLETE EXAM: XR LUMBAR SPINE COMPLETE CLINICAL HISTORY: vertebral alignment r/t herniation, Low back pain M54.50. TECHNIQUE: 2D digital imaging was performed. Five views. COMPARISON: No exams were available for comparison FINDINGS: BONES: No fracture or destructive lesion. Vertebral bodies are unremarkable. No facet hypertrophy smita ntified. No spondylolysis. DISKS: Intervertebral disc spaces are maintained. ALIGNMENT: Lumbar spinal alignment is within normal limits. No spondylolisthesis. SOFT TISSUE: Normal. IMPRESSION: Unremarkable radiographs of the lumbar spine. DATA REPOSITORY: RADIATION DOSE DELIVERED:
== END ==
PROVIDERS: PCP Family Medicine; Visit Provider Nurse Practitioner Family
DX: M51.26 Other intervertebral disc displacement, lumbar region
CPT/HCPCS: 72110

== ENCOUNTER 2022-11-07 10:23 | Emergency (ER) | payer MEDICAID, SELFPAY ==
[2022-11-07] VITALS (37 sets, daily range): BP systolic 120–165; BP diastolic 74–105; PULSE 81–149; RESP 14–32; TEMP 37.2; O2SAT 96–99
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
[2022-11-07] MEDS: Ketamine 500 MG/10 ML VIAL IM (10:36)
--- NOTE | 2022-11-07 10:45 | RT.EKG_ITS ---
APPROVED REPORT Exam: Resting ECG Reason for Exam: tachycardia Patient Location: E HR:143 bpm ECG Measurements Heart Rate 143 AXIS WI 117 P 65 QRSd 88 QRS 2 QT 288 T 24 QTc 444 Conclusion Sinus tachycardia...rate> 99 Atrial premature complex...SV complex w/ short R-R interval
[2022-11-07 11:09] LABS: Abs Immature Grans 0.06 10^3/uL (0.0-0.06); Absolute Basophil Count 0.05 10^3/uL (0.0-0.2); Absolute Eosinophil Count 0.48 10^3/uL (0.0-0.7); Absolute Monocyte Count 0.97 10^3/uL (0.1-0.8); Absolute Neutrophil Count 9.61 10^3/uL (1.2-6.7); Basophils % 0.4; Eosinophils % 3.5; HCT 43.7 % (40.0-50.0); HGB 13.9 g/dL (13.5-17.5); Immature Grans % 0.4; Lymphocytes % 18.6; MCH 21.8 pg (27.0-33.0); MCHC 31.8 % (32.0-36.0); MCV 69 fL (80-95); MPV 9.3 fL (8.0-11.0); Monocytes % 7.1; Platelet Count 303 10^3/uL (130-400); RBC 6.37 10^6/uL (4.36-5.78); RDW 15.7 % (11.8-14.1); RDW-SD 35.9 fL; WBC 13.73 10^3/uL (4.4-10.8)
[2022-11-07 11:11] LABS: Absolute Lymphocyte Count 2.55 10^3/uL (1.2-3.4)
[2022-11-07 11:26] LABS: VALPROIC ACID < 3 ug/mL
[2022-11-07 11:27] LABS: Diff Comment Diff Reviewed; Microcytosis 1+
[2022-11-07 11:28] LABS: Salicylate < 2.8 mg/dL (<2.8)
[2022-11-07 11:30] LABS: Acetaminophen < 2 ug/mL (10-30)
[2022-11-07 11:36] LABS: ALT 27 U/L (16-63); AST 29 U/L (15-37); Alkaline Phosphatase 103 U/L (46-116); Anion Gap 12.6 mmol/L (3-11); BUN 12 mg/dL (7-18); Bilirubin, Total 0.9 mg/dL (0.2-1.0); CO2 26.4 mmol/L (21.0-32.0); CREATININE 1.2 mg/dL (0.70-1.30); Calcium 9.9 mg/dL (8.5-10.1); Chloride 99 mmol/L (98-107); ETHANOL BLOOD 3.2 mg/dL (<10); Estimated GFR 85.53 (mL/min/1.73m2); Glucose 145 mg/dL (74-106); Potassium 3.3 mmol/L (3.5-5.1); Sodium 138 mmol/L (136-145); TSH (W/Ref FT4) 1.84 uIU/mL (0.36-3.74); Total Protein 7.9 g/dL (6.4-8.2)
[2022-11-07 12:33] LABS: Bilirubin Negative (Negative); Blood Negative (Negative); Clarity Clear (Clear); Glucose Negative (Negative); Ketones 15 mg/dL (Negative); Leukocyte Esterase Negative (Negative); Nitrite Negative (Negative); Urobilinogen 0.2 mg/dL (Up to 0.2); pH 6.5 (5-8)
[2022-11-07 12:47] LABS: *AMPHETAMINES SCREEN URINE Negative (Negative); *BARBITURATES SCREEN URINE Negative (Negative); *BENZODIAZEPINES SCREEN URINE Negative (Negative); Cannabinoids THC Positive (Negative); Cocaine Screen,Urine Positive (Negative); METHADONE URINE SCREEN Negative (Negative); OPIATES URINE SCREEN Negative (Negative)
[2022-11-07 12:53] LABS: Tricyclic Antidepressants Negative (Negative)
--- NOTE | 2022-11-07 13:25 | PDOC.CMSAFED ---
- If Service Date Differs Date of service: 11/07/22 Time of Service: 13:25 Care Management Safety Plan Status: Interim - Reason for Wait Reason for Wait: Medical Clearance Chief Complaint: [facility] brings Attila to the emergency room after receiving a call from his father stating Attila was being aggressive and violent. Attila has a documented history of psychosis, aggression and substance use. A toxicology report done at [facility] today returns positive for Cocaine and THC. Since his arrival at the hospital, Attila has been uncooperative, inappropriate and threatening towards staff. Attempts at verbally de-escalating him have been unsuccessful, requiring both physical and chemical restraints. CM will continue to follow. CM will respond to ED to assess patient after patient has been medically cleared and assessed by screener. If screener deems patient meets criteria for psychiatric stabilization CM will facilitate interdepartmental huddle with [facility] screener for safety planning considerations and meet with patient to review [facility] policy and safety plan, establish individual wishes for treatment and maintain patient rights. In the interim; please note safety plan below to guide patient care while awaiting further assessment in the ED. SAFETY PLAN: 1. Will remain on suicide precautions and in paper clothes. 2. Will remain in room under direct supervision of one-on-one staff at all times provided by [employer], CERTIFIED COURT/MEDICAL INTERPRETER, COUNTY JUDGE direct support professional. 3. May have paper cups, plates, finger foods as well as a cardboard spoon with which to eat meals. 4. Follow [facility] Management of the Admitted Behavioral Health Patient policy. 5. Comfort bath system only. 6. No personal belongings 7. No visitors. 8. Phone contact: None at this time. 9. Due to VOLUNTARY status, if patient wishes to leave [facility], staff will contact [facility] Crisis Screener ([phone]) and On-Call Rotary Envelope Machine Operator ([phone]) as soon as possible. In the event of elopement, notify [facility] Police ([phone]). If deemed appropriate for inpatient psychiatric care, safety plan will be established with patient, and care team, to adhere to patient goals, identify restrictions based on behavioral status, address nutrition, and determine allowed personal belongings, tools for hygiene and personal care. As well plan will determine level of activity including ambulation, level of supervision, visitors, and determine privileges based on level of acuity, behaviors and level of engagement by patient.
[2022-11-07] MEDS: Water,Injection,Sterile 10 ML VIAL (13:31)
[2022-11-07] MEDS: OLANZapine 10 MG VIAL IM (13:31)
[2022-11-07] MEDS: LORazepam 2 MG/ML VIAL IM (13:31)
--- NOTE | 2022-11-07 14:46 | W.EDRSTF2F ---
Date of service: 11/07/22 Time of Service: 14:30 Restraint Face to Face Time of Face to Face 3rd Face to Face: Time of Face to Face: 14:30 Patient's Immediate Situation Requiring Restraints/Seclusion: Harm to Staff & Others Patient Response to Restraints: Remains Agitated and Restless Need for Continuation of Restraints Has Been Assessed: Restraints Continued
--- NOTE | 2022-11-07 15:15 | DI.CT_ITS ---
Exam(s) CT HEAD WO EXAM: CT HEAD WO CLINICAL HISTORY: altered mental status. TECHNIQUE: Imaging Protocol: Axial computed tomography images with coronal and sagittal reformatted images were created and reviewed COMPARISON: CT HEAD WITHOUT CONTRAST from 05/31/2016 FINDINGS: Exam extremely limited due to patient motion. Large portions of the brain are not visible. Ventricles and Extra axial spaces: Normal in size and morphology for the patient's age. Hemorrhage: None. Cerebral parenchyma: Normal where visualized. Midline shift: None. Brainstem/Cerebellum: Normal. Calvarium: Normal. Visualized Paranasal sinuses/Mastoids: Mild mucous retention both maxillary sinuses. Soft Tissues: Unremarkable. IMPRESSION: Severely limited exam due to motion. No acute intracranial process involving the visualized portions of the brain or skull. Mild sinus disease... RADIATION DOSE DELIVERED: 1,193.79mGy.cm Total DLP DATA REPOSITORY: All CT scans at this facility are submitted to the National Radiology Data Registry (NRDR) Dose Index Registry (DIR) with the [employer] (ACR). RADIATION OPTIMIZATION: All CT scans at this facility use at least one of these dose optimization te chniques: automated exposure control; mA and/or kV adjustment per patient size (includes targeted exa ms where dose is matched to clinical indication); or iterative reconstruction.
--- NOTE | 2022-11-07 19:48 | DI.VRAD_ITS ---
PROCEDURE INFORMATION: Exam: CT Head Without Contrast Exam date and time: 11/07/2022 7:18 PM Age: 27 years old Clinical indication: Altered mental status/memory loss; Confusion or disorientation; Additional info: AMS. TECHNIQUE: Imaging protocol: Computed tomography of the head without contrast. Radiation optimization: All CT scans at this facility use at least one of these dose optimization techniques: automated exposure control; mA and/or kV adjustment per patient size (includes targeted exams where dose is matched to clinical indication); or iterative reconstruction. COMPARISON: CT HEAD WITHOUT CONTRAST 05/31/2016 2:34 AM FINDINGS: Limitations: There is extensive motion throughout this examination which significantly limits evaluation. Mid to upper region of the brain is not evaluated. Brain: No evidence of large cerebral hematoma in the regions partially visualized. Cerebral ventricles: Partially visualized ventricles are not enlarged. Paranasal sinuses: There is mucosal thickening in the bilateral maxillary sinuses. Mastoid air cells: There is trace fluid in the right mastoid air cells. Bones/joints: No acute fracture in the skull base visualized. Soft tissues: Unremarkable. IMPRESSION: Significantly limited evaluation of the brain parenchyma. No large hematoma in the partially visualized regions. Repeat scan may be considered with any relevant sedation. Dictated and Authenticated by: Tish Collins MD. Ordering:ERYN Duque MD
--- NOTE | 2022-11-07 19:54 | NUR.NOTE ---
Nursing Note: @ [address], pt became threatening and aggressive towards staff @ 1919 4 point restraints placed on pt, Dr. Thompson in CT room for eval
--- NOTE | 2022-11-07 20:54 | NUR.NOTE ---
I entered pts room at his request to urinate, pt is currently in physical restraints, this was his 4th request, each previous time he refused assistance, this time he did relieve himself with my assistance, EDGARD
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
--- NOTE | 2022-11-07 22:05 | NUR.NOTE ---
Nursing Note: pT requested a snack, pT was given 1/2 a bag of chips, along with 32oz of water. while this technical report writer was in the rm, pt was calm and respectful.
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
--- NOTE | 2022-11-08 01:15 | W.EDRSTF2F ---
Date of service: 11/07/22 Time of Service: 23:00 Restraint Face to Face Time of Face to Face Face to Face: Time of Face to Face: 23:00 Patient's Immediate Situation Requiring Restraints/Seclusion: Harm to Staff & Others Patient's Medical & Behavioral Condition: Pt has continued to demonstrate violent behavior towards staff and will continue 4 point restraints. Need for Continuation of Restraints Has Been Assessed: Restraints Continued
--- NOTE | 2022-11-08 01:18 | W.EDRSTF2F ---
Date of service: 11/08/22 Time of Service: 01:00 Restraint Face to Face Time of Face to Face 2nd Face to Face: Time of Face to Face: 01:00 Patient's Immediate Situation Requiring Restraints/Seclusion: Harm to Staff & Others Patient Response to Restraints: Tolerating without Problems Patient's Medical & Behavioral Condition: Patient has continued to demonstrate violent behavior towards staff and others. Restraints will be continued at this time. Need for Continuation of Restraints Has Been Assessed: Restraints Continued
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
[2022-11-08] MEDS: LORazepam 1 MG TAB 2 MG PO ×4 (02:17→18:32)
--- NOTE | 2022-11-08 06:11 | NUR.NOTE ---
Nursing Note: pT was able to remove his L hand from the restraint. 11/08/22 [id number]
[2022-11-08] MEDS: Nicotine 14 MG/24 HR PATCH (06:21)
[2022-11-08] MEDS: lamoTRIgine 100 MG TAB 50 MG PO (07:43)
[2022-11-08] MEDS: OLANZapine 5 MG TAB PO ×2 (07:43→18:32)
--- NOTE | 2022-11-08 09:24 | CMSP_ITS ---
- If Service Date Differs Date of service: 11/08/22 Time of Service: 09:24 Care Management Safety Plan Status: Involuntary - Reason for Wait Reason for Wait: Other (Awaiting 2nd Certification by Psychiatrist) INVOLUNTARY FOR INPATIENT PSYCHIATRIC STABILIZATION. Safety plan has been established to meet the needs of the patient, and consideration of the care team, to adhere to patient goals, identify restrictions based on behavioral status, address nutrition, and determine allowed personal belongings, tools for hygiene and personal care. Determine level of activity including ambulation, level of supervision, visitors, and determine privileges based on behaviors and level of engagement by pt. A huddle is held at approximately 9:[address] Johnson, ED provider, Felicity, nursing supervisor filter assembly, Kathie, RN, Mary Ann, RN, and HEIKE Saucedo, in attendance. SAFETY PLAN: 1. Will remain on SI/HI precautions. In Paper Clothes 2. Will remain in room under direct supervision of one-on-one staff at all times provided by [employer], CARLOS ENRIQUE, STAGE SET DESIGNER litigation support analyst. 3. May have paper cups, plates, finger foods as well as a cardboard spoon to eat meals with. 4. Follow [facility] Management of the Admitted Behavioral Health Patient policy. 5. Comfort bath system only. 6. No personal belongings 7. Visitors: None at this time. 8. Activities: Activities based on behavior and at RN discretion. 9. Bathroom privileges with supervision 10. Phone: Limited to legal contacts via hospital cordless phone at RN discretion. 11. Due to INVOLUNTARY status, patient is being held at [facility] by the Department of Mental Health ([facility]) until 2nd certification by [facility] Psychiatrist can be performed (within 24 hours). Staff will provide de-escalation support (CPI) as needed. If patient wishes to leave [facility], staff will contact [facility] Crisis Screener ([phone]) and On-Call Shoe Lay Out Planner ([phone]) as soon as possible. In the event of elopement, notify [place] [employer] ([phone]). Patient is currently involuntarily at [facility]. [facility] Frontline Mortgage Loan Counselor will continue seeking placement. Please contact the [facility] Shoe Lay Out Planner ([phone]) for any needed changes to Safety Plan. Safety plan has been provided to interdepartmental care team. Patient will be transported by [facility] at time of discharge.
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
[2022-11-08] MEDS: OLANZapine 10 MG TAB (12:18)
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
--- NOTE | 2022-11-08 19:17 | NUR.NOTE ---
Nursing assessment completed. Surgical mask placed on pt during assessment to reduce risk of pt spitting on staff and security is present during assessment. Pt is belligerant and yelling I turn when I get home! Get the fuck out of my room, when I get out of restraints I going to fuck you up you cunt! He is kicking and attempting to grab RN during assessment. Brief is clean, pt did eat approx 75% of dinner. See nursing assessment notes.
[2022-11-08 19:30] VITALS: RESP 22
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
--- NOTE | 2022-11-08 19:51 | W.EDRSTF2F ---
Date of service: 11/08/22 Time of Service: 19:51
[2022-11-08] MEDS: LORazepam 2 MG/ML VIAL IM (20:15)
[2022-11-08] MEDS: Haloperidol 5 MG/ML VIAL 10 MG IM (20:15)
[2022-11-08] MEDS: diphenhydrAMINE 50 MG/ML VIAL IM (20:19)
--- NOTE | 2022-11-08 20:21 | NUR.NOTE ---
@2005- Pt continues to yell and pull at restraints despite any attempts to re-direct pt. MD Elizabeth made aware. IM meds ordered. Pt agreed to take meds stating what the fuck ever you bitch! You have no idea what you are doing-give me the meds and I want my fucking nicotine vape! Pt given med per ords with security present. Pt was given his nicotine. I then applied a clean brief, cleaned his face and neck with a wet wash cloth, brushed his teeth and gave him apple juice and ice water per his request. Pt made aware that all needs for this shift will be taken care of by me during hourly rounds. Pt verbalized understanding of plan. He denies other needs at this time. CPSO made aware that any pt requests need to be elevated to RN and will be taken care of during hourly rounds.
[2022-11-08 21:00] VITALS: PULSE 73; RESP 16
--- NOTE | 2022-11-08 21:31 | NUR.NOTE ---
@2115- Pt is sleeping with even and unlabored resp. Vitals stable. Meets criteria for restraint dc and discussed this with MD who agrees with plan. Restraint ords dc'd and restraints were removed with security present. All medical equipment secured per protocol.
--- NOTE | 2022-11-08 23:00 | RT.EKG_ITS ---
APPROVED REPORT Exam: Resting ECG Reason for Exam: screening for psych meds Patient Location: E HR:72 bpm ECG Measurements Heart Rate 72 AXIS WY 136 P 32 QRSd 93 QRS 17 QT 372 T 10 QTc 407 Conclusion Sinus rhythm...normal P axis, V-rate 60- 99 ST elev, probable normal early repol pattern...ST elevation, age<55
--- NOTE | 2022-11-08 23:17 | NUR.NOTE ---
EKG ordered for pt. Pt refuses to lay still in bed stating, what the fuck to you want it's cold! Fuck off me, you and I are not friends Attempted to explain repeat EKG for pt who refused testing and continued to argue with RN. MD Richi made aware. Per EKG does not need to be done at this time.
[2022-11-09] VITALS (28 sets, daily range): BP systolic 116; BP diastolic 70; PULSE 76–148; RESP 16; TEMP 36.6; O2SAT 93–97
[2022-11-09] MEDS: Nicotine 21 MG/24 HR PATCH TD (02:20)
--- NOTE | 2022-11-09 03:18 | NUR.NOTE ---
@0200-Hourly round completed. Pt ambulated to bathroom. He c/o needing to poop but has not been able to. Last BM was 2 days ago. aware and asked for stool softener to be ordered. Pt was given applesauce and water he refused es crackers. Pt still continues to yell at staff stating I want to fucking go home. I don't fucking care what time it is!
--- NOTE | 2022-11-09 03:57 | NUR.NOTE ---
Pt's mother called and asked for an update on pt's plan of care and status. Verbal permission given by pt to talk with his mother about his medical care. Pt's mother was updated about pt's behavior this shift, medication admin and mental health assessment status. During phone call pt came out of his room and began yelling at staff in ed taylor and I had to get off phone with mother before all questions were answered. I attempted to call mother back using the number listed in pt information. No answer.
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
--- NOTE | 2022-11-09 07:15 | NUR.NOTE ---
@[address] [place] [address] dispatch called. Mental Health paged and updated on pt status. Pt continues to be monitored by security and CPS[employer] but continues to yell racial slurs and obscenities at staff.
[2022-11-09] MEDS: Ketamine 500 MG/5 ML VIAL (07:36)
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
--- NOTE | 2022-11-09 07:52 | NUR.NOTE ---
pts heart rate increased to 140, confirmed with manual palpation. MD Katz made aware and at bedside. Heart rate began to decrease, will continue to monitor.
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
[2022-11-09] MEDS: OLANZapine 5 MG TAB PO (09:20)
[2022-11-09] MEDS: lamoTRIgine 100 MG TAB 50 MG PO (09:20)
[2022-11-09] MEDS: LORazepam 1 MG TAB 4 MG PO ×2 (09:23→18:20)
[2022-11-09] MEDS: Haloperidol 5 MG/ML VIAL 10 MG IM (10:13)
[2022-11-09] MEDS: LORazepam 2 MG/ML VIAL 4 MG IM (10:14)
--- NOTE | 2022-11-09 10:28 | CMSP_ITS ---
- If Service Date Differs Date of service: 11/09/22 Time of Service: 10:28 Care Management Safety Plan Status: Involuntary - Reason for Wait Reason for Wait: Other (EE, awaiting transfer to inpatient psych facility) INVOLUNTARY FOR INPATIENT PSYCHIATRIC STABILIZATION. Safety plan has been established to meet the needs of the patient, and consideration of the care team, to adhere to patient goals, identify restrictions based on behavioral status, address nutrition, and determine allowed personal belongings, tools for hygiene and personal care. Determine level of activity including ambulation, level of supervision, visitors, and determine privileges based on behaviors and level of engagement by pt. 11/08/22 second cert completed @ 1800 11/09/22 Pt continues to be closely monitored while awaiting placement. Per provider: meds not working, behavior is not good, increasing violence and aggression, patient was able to get out of restraints. spoke with Benito personally this morning and anticipated transfer would happen today. 1100: Benito is still reviewing. SAFETY PLAN: 1. Will remain on SI/HI precautions. In Paper Clothes 2. Will remain in room under direct supervision of one-on-one staff at all times provided by CPSO, TYPEWRITER REPAIRER, VOLLEYBALL COMMENTATOR borough coordinator. 3. May have paper cups, plates, finger foods as well as a cardboard spoon to eat meals with. 4. Follow [facility] Management of the Admitted Behavioral Health Patient policy. 5. Comfort bath system only. 6. No personal belongings 7. Visitors: None at this time. 8. Activities: Activities based on behavior and at RN discretion. 9. Bathroom privileges with supervision 10. Phone: Limited to legal contacts via hospital cordless phone at RN discretion. 11. Due to INVOLUNTARY status, patient is being held at [facility] by the Department of Mental Health ([facility]) until 2nd certification by [facility] Psychiatrist can be performed (within 24 hours). Staff will provide de-escalation support (CPI) as needed. If patient wishes to leave [facility], staff will contact [facility] Crisis Screener ([phone]) and On-Call Silverware Washer ([phone]) as soon as possible. In the event of elopement, notify [facility] Police ([phone]). Patient is currently involuntarily at [facility]. [facility] Frontline General Manager [employer] will continue seeking placement. Please contact the [facility] Treater Silverware Washer ([phone]) for any needed changes to Safety Plan. Safety plan has been provided to interdepartmental care team. Patient will be transported by [facility] at time of discharge.
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
[2022-11-09] MEDS: Nicotine 14 MG/24 HR PATCH TD (12:04)
--- NOTE | 2022-11-09 14:00 | NUR.NOTE ---
received a call from the patient's mother expressing concern regarding a call made to the [facility] stating patient was threatening his workplace. mother also gave some background on patient that he has recently (past couple of years) had 3 friends that have . mother stated most recent admission was at [facility] where they rx'd monthly injections as he is not compliant with rx'd medication dosing. crew supervisor notified who suggested to refer the call to sean (care manger) whom it was noted in the chart that she had spoken to the [facility]. Nursing Note:
[2022-11-09] MEDS: Droperidol 5 MG/2 ML VIAL IM ×2 (16:09→17:03)
[2022-11-09] MEDS: Midazolam 2 MG/2 ML VIAL 4 MG IM (16:10)
--- NOTE | 2022-11-09 16:22 | CMPROGNOTE_ITS ---
- If Service Date Differs Date of service: 11/09/22 Time of Service: 16:22 Care Management Progress Note Per [facility] mental health clinician, pt is accepted to [facility] for inpatient psychiatric treatment and stabilization. He is transported via secure transport coordinated by [facility].
--- NOTE | 2022-11-09 16:22 | PDOC.ERCMPRO ---
- If Service Date Differs Date of service: 11/09/22 Time of Service: 16:22 Care Management Progress Note Per [facility] workplace rehabilitation officer, pt is accepted to [facility] for inpatient psychiatric treatment and stabilization. He is transported via secure transport coordinated by [facility].
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
[2022-11-09] MEDS: LORazepam 2 MG/ML VIAL IVP (19:24)
== END 2022-11-09 19:49 ==
PROVIDERS: Emergency Medicine; Emergency Provider Student in an Organized Health Care Education/Training Program; PCP Family Medicine
DX: R45.6 Violent behavior (principal); F29 Unspecified psychosis not due to a substance or known physiological condition; R45.1 Restlessness and agitation; R41.82 Altered mental status, unspecified
CPT/HCPCS: 36415; 80053; 80307; 93005; 96372; 99285; 70450; 80164; 80320; 80329; 81003; 84443; 85025; 93010; J1200; J1630; J1790; J2060; J2250

== ENCOUNTER 2022-12-13 12:38 | Outpatient (REF) | payer MEDICAID, SELFPAY ==
[2022-12-13 16:00] LABS: Hemoglobin A1C 5.6 % (<5.7)
[2022-12-13 16:39] LABS: Anion Gap 11.5 mmol/L (3-11); BUN 10 mg/dL (7-18); CO2 26.5 mmol/L (21.0-32.0); CREATININE 0.9 mg/dL (0.70-1.30); Calcium 9.4 mg/dL (8.5-10.1); Calculated LDL 181 mg/dL (<100); Chloride 103 mmol/L (98-107); Cholesterol 259 mg/dL (<200); Glucose 122 mg/dL (74-106); HDL Cholesterol 59 mg/dL (40-60); Magnesium 1.9 mg/dL (1.8-2.4); Sodium 141 mmol/L (136-145); Triglyceride 97 mg/dL (<150)
[2022-12-18 14:40] LABS: Codeine Negative ng/mL (Cutoff: 25); Dihydrocodeine Negative ng/mL (Cutoff: 25); Hydrocodone Negative ng/mL (Cutoff: 25); Hydromorphone Negative ng/mL (Cutoff: 25); Morphine Negative ng/mL (Cutoff: 25); Naloxone Negative ng/mL (Cutoff: 25); Norhydrocodone Negative ng/mL (Cutoff: 25); Noroxycodone Negative ng/mL (Cutoff: 25); Noroxymorphone 1257 ng/mL (Cutoff: 25); Opiates Interpretation Positive.
== END 2022-12-13 12:39 | disposition home or self-care (01) ==
LOC: NCHCN 12:38
PROVIDERS: PCP Family Medicine; Visit Provider Family Medicine
DX: E87.6 Hypokalemia (principal); Z13.1 Encounter for screening for diabetes mellitus; Z13.220 Encounter for screening for lipoid disorders; F31.2 Bipolar disorder, current episode manic severe with psychotic features; Z79.899 Other long term (current) drug therapy; R82.5 Elevated urine levels of drugs, medicaments and biological substances
CPT/HCPCS: 80048; 80061; 80361; 80362; 80365; 83036; 83735

== ENCOUNTER 2023-05-01 17:44 | Emergency (ER) | payer MEDICAID, SELFPAY ==
[2023-05-01 17:54] VITALS: BP 105/66; PULSE 88; RESP 14; TEMP 37.2; O2SAT 98
--- NOTE | 2023-05-01 19:05 | ED.GENADUL_ITS ---
Discharge Plan Disposition Patient Disposition: Home Discharge Details Clinical Impression: Abscess, elbow, Cellulitis Primary Care Provider: Saqib Powell ED Provider: Tameka Holly Home Meds and New Rx's Prescriptions: New doxycycline hyclate 100 mg capsule 100 mg PO BID Qty: 18 0RF Continued lamotrigine [Lamictal] 25 mg Tablet 50 mg PO DAILY Patient Comments: not taking Discharge Instructions Instructions: Cellulitis (ED), Abscess (ED) Additional Instructions: Warm compresses Change dressing daily Take antibiotic as prescribed, know that you will be sensitive to the sun Return earlier with fever, chills, or with any new or worsening complaints Recommend 3-day recheck, likely take 2 days for the antibiotics to be reset Referrals: Saqib Powell [Primary Care Provider] - Medical Decision Making 28-year-old male, fully alert and oriented, approximately 5 inches of cellulitis surrounding an abscess overlying the olecranon process, perhaps infected bursa, incision and drainage performed with good effect, purulent drainage, wound culture pending Afebrile and nontoxic, placed on doxycycline Placed in a sling and dressing applied Return precautions reviewed and patient expressed understanding, adamantly denies any recenthistory of illicit drug use HPI General Date/Time Provider Initiated Documentation: 05/01/23 17:56 . HPI Narrative: This 28-year-old male with history of schizophrenia presents with reports of right elbow pain. States he has a rash with redness. He denies any decreased range of motion of the elbow. He states there was a pimple that he picked up now feels as though it is infected. He denies any history of illicit drug use. Denies chest pain or shortness of breath. Denies any trauma to the affected area. Related Data Home Medications Medication Instructions Recorded Confirmed lamotrigine 25 mg tablet (Lamictal) 50 mg PO DAILY 11/08/22 11/08/22 doxycycline hyclate 100 mg capsule 100 mg PO BID #18 caps 05/01/23 Previous Rx's Medication Instructions Recorded doxycycline hyclate 100 mg capsule 100 mg PO BID #18 caps 05/01/23 Allergies Allergy/AdvReac Type Severity Reaction Status Date / Time No Known Allergies Allergy Unverified 05/01/23 18:55 General Stated Complaint: Cellulitis KEITH: 3 PFSH All Active Problems (Updated 05/01/23 @ 19:02 by ADEOLA Draper) Abscess, elbow (Acute) Cellulitis (Acute) Homicidal ideation (Acute) Aggressive behavior (Acute) Alcohol abuse (Chronic) Discharge planning issues (Acute) DVT prophylaxis (Acute) Microcytosis (Acute) Polysubstance abuse (Acute) Suicidal ideation (Acute) Acute psychosis (Acute) Psychosis (Acute) 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 Maternal History Diabetes Social History Smoking/Tobacco Use Status: Current every day Tobacco Type: cigarettes Smoking risk assessment performed?: Yes Alcohol Intake: current Alcohol type: beer, wine and hard liquor Drug use: Daily Substance use type: marijuana Course Vital Signs Vital signs: Vital Signs Temperature 37.2 C 05/01/23 17:54 Pulse 88 05/01/23 17:54 Respiratory Rate 14 05/01/23 17:54 Blood Pressure 105/66 05/01/23 17:54 Pulse Oximetry 98 05/01/23 17:54 Temperature 37.2 C 05/01/23 17:54 Temperature Source Skin 05/01/23 17:54 Pulse 88 05/01/23 17:54 Respiratory Rate 14 05/01/23 17:54 Respiratory Effort Normal 05/01/23 18:51 Blood Pressure 105/66 05/01/23 17:54 Pulse Oximetry 98 05/01/23 17:54 Oxygen Delivery Method Room Air 05/01/23 17:54 Oxygen Flow Rate 0 05/01/23 17:54 Pain Level 7 05/01/23 17:54 Comment taking ibuprofen 05/01/23 17:54 Lab/Test Results Lab/Test Results: 05/01/23 18:07 Elbow - Right Wound Culture - Pending 05/01/23 18:07 Elbow - Right Gram Stain - Final Procedures Abscess I/D Site: Upper Extremity Side (if applicable): Right Local Anesthetic: Lidocaine 1% Amount of anesthesia used (mL): 3 Technique: Incised with #11 Blade Amount of fluid expressed (mL): 10 Irrigation: Yes Packing used?: None
[2023-05-01] MEDS: Doxycycline Hyclate 100 MG, 2 CAPS/BTL PO (19:15)
[2023-05-01 19:25] VITALS: BP 108/69; PULSE 90; TEMP 38.1; O2SAT 98
--- NOTE | 2023-05-02 12:12 | NUR.NOTE ---
Accessed pt chart for antibiotic on discharge. Lab called stating pt positive MRSA @ 1203. Nursing Note:
== END 2023-05-01 19:24 | disposition home or self-care (01) ==
PROVIDERS: Emergency Provider Physician Assistant; PCP Family Medicine
DX: L02.413 Cutaneous abscess of right upper limb; B95.62 Methicillin resistant Staphylococcus aureus infection as the cause of diseases classified elsewhere; F17.200 Nicotine dependence, unspecified, uncomplicated
CPT/HCPCS: 87077; 99283; 87070; 87186; 87205; 99284

== ENCOUNTER 2023-06-06 11:42 | Emergency (ER) | payer MEDICAID, SELFPAY ==
[2023-06-06 11:46] VITALS: BP 133/92; PULSE 107; RESP 16; TEMP 36.8; O2SAT 98
--- OUTSIDE RECORDS SUMMARY | 2023-06-06 11:56 | XMS_ITS | Continuity of Care Document ---
Author Name Unknown Organization [facility] Address [address] [place] [address] Encounter [facility] NBR [id number] Date(s): 07/29/22 - 07/29/22 [facility] [address], [place] [address] Encounter Diagnosis Sciatica of right side(Discharge Diagnosis) - 07/29/22 Discharge Disposition: Home or Self Care Attending Physician: Fara Wise APRN Allergies, Adverse Reactions, Alerts No Known Allergies Functional Status 07/29/22 Other exposure to Infectious Disease Non e Medications cyclobenzaprine 10 mg oral tablet 10 mg = 1 tab, Oral, TID, PRN as needed for spasm, # 10 tab, 0 Refill(s), Pharmacy: [facility] #[id number] Start Date: 07/29/22 Stop Date: 08/01/22 Status: Ordered IBU 600 mg oral tablet 600 mg = 1 tab, Oral, every 8 hr, # 21 tab, 0 Refill(s) Start Date: 07/29/22 Stop Date: 08/05/22 Status: Ordered predniSONE 10 mg oral tablet See Instruction, Oral, Daily, 4 tabs daily x3 days, 3 tabs daily x3 days, 2 tabs daily x3 days, 1 tab daily x3 days, # 30 tab, 0 Refill(s) Start Date: 07/29/22 Status: Ordered Vital Signs Most recent to oldest [Reference Range]: 1 Peripheral Pulse Rate [60-100 bpm] 60 bp m (07/29/22 9:03 AM) Blood Pressure [90-140/60-90 mmHg] 132/8 2mmHg (07/29/22 9:03 AM) Weight 96.16 kg (07/29/22 9:03 AM) Weight Measured (lbs) 211.996 lb (07/29/22 9:03 AM) Hospital Discharge Instructions Patient Education 07/29/2022 08:25:32 Back Exercises, Xhjz-gh-Qnif Back Exercises These exercises help to make your trunk and back strong. They also help to keep the lower back flexible. Doing these exercises can help to prevent or lessen pain in your lower back. ??? If you have back pain, try to do these exercises 2???3 times each day or as told by your doctor. ??? As you get better, do the exercises once each day. Repeat the exercises more often as told by your doctor. ??? To stop back pain from coming back, do the exercises once each day, or as told by your doctor. Do exercises exactly as told by your doctor. Stop right away if you feel sudden pain or your pain gets worse. Exercises Single knee to chest Do these steps 3???5 times in a row for each le. Lie on your back on a firm bed or the floor with your legs stretched out. 2. Bring one knee to your chest. 3. Grab your knee or thigh with both hands and hold it in place. 4. Pull on your knee until you feel a gentle stretch in your lower back or butt. 5. Keep doing the stretch for 10???30 seconds. 6. Slowly let go of your leg and straighten it. Pelvic tilt Do these steps 5???10 times in a row: 1. Lie on your back on a firm bed or the floor with your legs stretched out. 2. Bend your knees so they point up to the ceiling. Your feet should be flat on the floor. 3. Tighten your lower belly (abdomen) muscles to press your lower back against the floor. This willmake your tailbone point up to the ceiling instead of pointing down to your feet or the floor. 4. Stay in this position for 5???10 seconds while you gently tighten your muscles and breathe evenly. Cat???cow Do these steps until your lower back bends more easily: 1. Get on your hands and knees on a firm bed or the floor. Keep your hands under your shoulders, and keep your knees under your hips. You may put padding under your knees. 2. Let your head hang down toward your chest. Tighten (contract) the muscles in your belly. Point your tailbone toward the floor so your lower back becomes rounded like the back of a cat. 3. Stay in this position for 5 seconds. 4. Slowly lift your head. Let the muscles of your belly relax. Point your tailbone up toward the ceiling so your back forms a sagging arch like the back of a cow. 5. Stay in this position for 5 seconds. Press-ups Do these steps 5???10 times in a row: 1. Lie on your belly (face-down) on a firm bed or the floor. 2. Place your hands near your head, about shoulder-width apart. 3. While you keep your back relaxed and keep your hips on the floor, slowly straighten your arms toraise the top half of your body and lift your shoulders. Do not use your back muscles. You may change where you place your hands to make yourself more comfortable. 4. Stay in this position for 5 seconds. Keep your back relaxed. 5. Slowly return to lying flat on the floor. Bridges Do these steps 10 times in a row: 1. Lie on your back on a firm bed or the floor. 2. Bend your knees so they point up to the ceiling. Your feet should be flat on the floor. Your arms should be flat at your sides, next to your body. 3. Tighten your butt muscles and lift your butt off the floor until your waist is almost as high asyour knees. If you do not feel the muscles working in your butt and the back of your thighs, slide your feet 1???2 inches (2.5???5 cm) farther away from your butt. 4. Stay in this position for 3???5 seconds. 5. Slowly lower your butt to the floor, and let your butt muscles relax. If this exercise is too easy, try doing it with your arms crossed over your chest. Belly crunches Do these steps 5???10 times in a row: 1. Lie on your back on a firm bed or the floor with your legs stretched out. 2. Bend your knees so they point up to the ceiling. Your feet should be flat on the floor. 3. Cross your arms over your chest. 4. Tip your chin a little bit toward your chest, but do not bend your neck. 5. Tighten your belly muscles and slowly raise your chest just enough to lift your shoulder blades a tiny bit off the floor. Avoid raising your body higher than that because it can put too much stress on your lower back. 6. Slowly lower your chest and your head to the floor. Back lifts Do these steps 5???10 times in a row: 1. Lie on your belly (face-down) with your arms at your sides, and rest your forehead on the floor. 2. Tighten the muscles in your legs and your butt. 3. Slowly lift your chest off the floor while you keep your hips on the floor. Keep the back of your head in line with the curve in your back. Look at the floor while you do this. 4. Stay in this position for 3???5 seconds. 5. Slowly lower your chest and your face to the floor. Contact a doctor if: ??? Your back pain gets a lot worse when you do an exercise. ??? Your back pain does not get better within 2 hours after you exercise. If you have any of these problems, stop doing the exercises. Do not do them again unless your doctor says it is okay. Get help right away if: ??? You have sudden, very bad back pain. If this happens, stop doing the exercises. Do not do them again unless your doctor says it is okay. This information is not intended to replace advice given to you by your health care provider. Make sure you discuss any questions you have with your health care provider. Document Revised: 10/25/2021 Document Reviewed: 10/25/2021 [employer] Patient Education ?? 2021 [email or web address] 07/29/2022 08:25:26 Sciatica, Gkvf-xq-Hkun Sciatica Sciatica is pain, weakness, tingling, or loss of feeling (numbness) along the sciatic nerve. The sciatic nerve starts in the lower back and goes down the back of each leg. Sciatica usually goes away on its own or with treatment. Sometimes, sciatica may come back (recur). What are the causes? This condition happens when the sciatic nerve is pinched or has pressure put on it. This may be theresult of: ??? A disk in between the bones of the spine bulging out too far (herniated disk). ??? Changes in the spinal disks that occur with aging. ??? A condition that affects a muscle in the butt. ??? Extra bone growth near the sciatic nerve. ??? A break (fracture) of the area between your hip bones (pelvis). ??? . ??? Tumor. This is rare. What increases the risk? You are more likely to develop this condition if you: ??? Play sports that put pressure or stress on the spine. ??? Have poor strength and ease of movement (flexibility). ??? Have had a back injury in the past. ??? Have had back surgery. ??? Sit for long periods of time. ??? Do activities that involve bending or lifting over and over again. ??? Are very overweight (obese). What are the signs or symptoms? Symptoms can vary from mild to very bad. They may include: ??? Any of these problems in the lower back, leg, hip, or butt: ??? Mild tingling, loss of feeling, or dull aches. ??? Burning sensations. ??? Sharp pains. ??? Loss of feeling in the back of the calf or the sole of the foot. ??? Leg weakness. ??? Very bad back pain that makes it hard to move. These symptoms may get worse when you cough, sneeze, or laugh. They may also get worse when you sitor stand for long periods of time. How is this treated? This condition often gets better without any treatment. However, treatment may include: ??? Changing or cutting back on physical activity when you have pain. ??? Doing exercises and stretching. ??? Putting ice or heat on the affected area. ??? Medicines that help: ??? To relieve pain and swelling. ??? To relax your muscles. ??? Shots (injections) of medicines that help to relieve pain, irritation, and swelling. ??? Surgery. Follow these instructions at home: Medicines ??? Take lzrp-kfe-behuycy and prescription medicines only as told by your doctor. ??? Ask your doctor if the medicine prescribed to you: ??? Requires you to avoid driving or using heavy machinery. ??? Can cause trouble pooping (constipation). You may need to take these steps to prevent or treat trouble pooping: ??? Drink enough fluids to keep your pee (urine) pale yellow. ??? Take jlgz-feh-qbjpgkc or prescription medicines. ??? Eat foods that are high in fiber. These include beans, whole grains, and fresh fruits and vegetables. ??? Limit foods that are high in fat and sugar. These include fried or sweet foods. Managing pain ??? If told, put ice on the affected area. ??? Put ice in a plastic bag. ??? Place a towel between your skin and the bag. ??? Leave the ice on for 20 minutes, 2???3 times a day. ??? If told, put heat on the affected area. Use the heat source that your doctor tells you to use, such as a moist heat pack or a heating pad. ??? Place a towel between your skin and the heat source. ??? Leave the heat on for 20???30 minutes. ??? Remove the heat if your skin turns bright red. This is very important if you are unable to feelpain, heat, or cold. You may have a greater risk of getting burned. Activity ??? Return to your normal activities as told by your doctor. Ask your doctor what activities are safe for you. ??? Avoid activities that make your symptoms worse. ??? Take short rests during the day. ??? When you rest for a long time, do some physical activity or stretching between periods of rest. ??? Avoid sitting for a long time without moving. Get up and move around at least one time each hour. ??? Exercise and stretch regularly, as told by your doctor. ??? Do not lift anything that is heavier than 10 lb (4.5 kg) while you have symptoms of sciatica. ??? Avoid lifting heavy things even when you do not have symptoms. ??? Avoid lifting heavy things over and over. ??? When you lift objects, always lift in a way that is safe for your body. To do this, you should: ??? Bend your knees. ??? Keep the object close to your body. ??? Avoid twisting. General instructions ??? Stay at a healthy weight. ??? Wear comfortable shoes that support your feet. Avoid wearing high heels. ??? Avoid sleeping on a mattress that is too soft or too hard. You might have less pain if you sleep on a mattress that is firm enough to support your back. ??? Keep all follow-up visits as told by your doctor. This is important. Contact a doctor if: ??? You have pain that: ??? Wakes you up when you are sleeping. ??? Gets worse when you lie down. ??? Is worse than the pain you have had in the past. ??? Lasts longer than 4 weeks. ??? You lose weight without trying. Get help right away if: ??? You cannot control when you pee (urinate) or poop (have a bowel movement). ??? You have weakness in any of these areas and it gets worse: ??? Lower back. ??? The area between your hip bones. ??? Butt. ??? Legs. ??? You have redness or swelling of your back. ??? You have a burning feeling when you pee. Summary ??? Sciatica is pain, weakness, tingling, or loss of feeling (numbness) along the sciatic nerve. ??? This condition happens when the sciatic nerve is pinched or has pressure put on it. ??? Sciatica can cause pain, tingling, or loss of feeling (numbness) in the lower back, legs, hips,and butt. ??? Treatment often includes rest, exercise, medicines, and putting ice or heat on the affected area. This information is not intended to replace advice given to you by your health care provider. Make sure you discuss any questions you have with your health care provider. Document Revised: 08/31/2019 Document Reviewed: 08/31/2019 [employer] Patient Education ?? 2021 [employer] Physician Outpatient Note * Fara Wise APRN: PERFORM Event Display: Office Clinic Note Physician Authored Date: [id number] AYESHA GROSSMAN :1995 Age:27 years Sex:Male Visit Date:07/29/2022 Chief Complaint Pt reports flare of old lower right ??back injury ??which radiates down his right leg. States he isin constant pain. 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 History of Present Illness Patient is a 27-year-old??male who presents today with chief complaint??of lower back pain??that radiates down into the??right leg.?? He is??had issues with his lower back??before. 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 He denies any weakness, paresthesia, denies any changes in bowel or bladder function, no saddle anesthesia.?? Fever, chills, body aches. Physical Exam Vitals & Measurements HR:??60??(Peripheral)?? BP:??132/82?? SpO2:??100%?? WT:??96.16??kg?? Pain Score:??8?? Numbness to palpation to??the right??paraspinals of L4-L5, no palpable tenderness in the gluteus ordown the??posterior aspect of the hamstring, +??DTR, positive CSM Medical Decision Making: Patient was evaluated for??right lower back pain??with radiculopathy.?As prednisone, stating that it has??worked in the past. ??I did state that it is not always??effective, but he would like to??attempt it. ??I recommended muscle relaxants and ibuprofen. ??Primary care for lack of improvement Assessment/Plan 1.??Sciatica of right side??M54.31 Ordered: cyclobenzaprine 10 mg oral tablet, 10 mg = 1 tab, Oral, TID, PRN as needed for spasm, # 10 tab, 0 Refill(s), Pharmacy: [facility] #[id number] IBU 600 mg oral tablet, 600 mg = 1 tab, Oral, every 8 hr, # 21 tab, 0 Refill(s) predniSONE 10 mg oral tablet, See Instruction, Oral, Daily, 4 tabs daily x3 days, 3 tabs daily x3 days, 2 tabs daily x3 days, 1 tab daily x3 days, # 30 tab, 0 Refill(s) ?? Patient Instructions Utilize prednisone taper as instructed,??cyclobenzaprine 10 mg??every 8 hours as needed for muscle spasming, do not operate machinery, do not mix with alcohol. ??Take ibuprofen 600 mg every 8 hours, you may add in acetaminophen also milligrams every 6-8 hours as needed for pain.?? Please utilize back stretches, apply??moist heat. Recommend limiting??heavy lifting, excessive bending at the waist and reaching over.??the midline. Patient Education Back Exercises, Isxe-jn-Loeh Sciatica, Rneo-dr-Vlru Problem List/Past Medical History Ongoing No qualifying data Historical No qualifying data Medications cyclobenzaprine 10 mg oral tablet, 10 mg= 1 tab, Oral, TID, PRN IBU 600 mg oral tablet, 600 mg= 1 tab, Oral, every 8 hr predniSONE 10 mg oral tablet, See Instruction, Oral, Daily Allergies No Known Allergies Electronically Signed on 07/29/22 07:24 PM Fara Wise APRN Outpatient Summary note * Fara Wise APRN: PERFORM Event Display: Ambulatory Patient Summary Authored Date: [id number] AYESHA GROSSMAN :1995 Age:27 years Sex:Male Visit Date:07/29/2022 Ambulatory Visit Instructions We would like to thank you for allowing us to assist you with your healthcare needs. The following includes patient education materials and information regarding your injury/illness. After you leave the office, you may get your health information including your test results, physician notes and discharge information by accessing your Patient Portal. Your Next Steps Instructions From Your Care Team Utilize prednisone taper as instructed,??cyclobenzaprine 10 mg??every 8 hours as needed for muscle spasming, do not operate machinery, do not mix with alcohol. ??Take ibuprofen 600 mg every 8 hours, you may add in acetaminophen also milligrams every 6-8 hours as needed for pain.?? Please utilize back stretches, apply??moist heat. Recommend limiting??heavy lifting, excessive bending at the waist and reaching over.??the midline. Medications What How Much When Why Instructions New cyclobenzaprine (cyclobenzaprine 10 mg oral tablet) 1 tab Oral (given by mouth) 3 times a day as needed for as needed for spasm Sciatica of right side Duration: 3 Days Pickup at [facility] #[id number] New ibuprofen (IBU 600 mg oral tablet) 1 tab Oral (given by mouth) Every 8 hours Sciatica of right side Duration: 7 Days Printed Prescription New predniSONE (predniSONE 10 mg oral tablet) See Instruction Oral (given by mouth) Every day Sciatica of right side 4 tabs daily x3 days, 3 tabs daily x3 days, 2 tabs daily x3 days, 1 tab daily x3 days ?? Printed Prescription Pharmacy Information [id number]: [address] [place], [place] [phone] Your Summary Your Diagnosis Sciatica of right side Your Care Team Attending Physician - Fara Wise, CHALK CUTTER Discharge Vitals Heart Rate??(Peripheral) 60 Blood Pressure?? 132/82?? Weight?? 212.03 lb (96.16 kg) Allergies No Known Allergies Education Materials Back Exercises These exercises help to make your trunk and back strong. They also help to keep the lower back flexible. Doing these exercises can help to prevent or lessen pain in your lower back. ? If you have back pain, try to do these exercises 2???3 times each day or as told by your doctor. ? As you get better, do the exercises once each day. Repeat the exercises more often as told by your doctor. ? To stop back pain from coming back, do the exercises once each day, or as told by your doctor. Do exercises exactly as told by your doctor. Stop right away if you feel sudden pain or your pain gets worse. Exercises Single knee to chest Do these steps 3???5 times in a row for each le.?? Lie on your back on a firm bed or the floor with your legs stretched out. 2.?? Bring one knee to your chest. 3.?? Grab your knee or thigh with both hands and hold it in place. 4.?? Pull on your knee until you feel a gentle stretch in your lower back or butt. 5.?? Keep doing the stretch for 10???30 seconds. 6.?? Slowly let go of your leg and straighten it. Pelvic tilt Do these steps 5???10 times in a row: 1.?? Lie on your back on a firm bed or the floor with your legs stretched out. 2.?? Bend your knees so they point up to the ceiling. Your feet should be flat on the floor. 3.?? Tighten your lower belly (abdomen) muscles to press your lower back against the floor. This will make your tailbone point up to the ceiling instead of pointing down to your feet or the floor. 4.?? Stay in this position for 5???10 seconds while you gently tighten your muscles and breathe evenly. Cat???cow Do these steps until your lower back bends more easily: 1.?? Get on your hands and knees on a firm bed or the floor. Keep your hands under your shoulders, and keep your knees under your hips. You may put padding under your knees. 2.?? Let your head hang down toward your chest. Tighten (contract) the muscles in your belly. Point yourtailbone toward the floor so your lower back becomes rounded like the back of a cat. 3.?? Stay in this position for 5 seconds. 4.?? Slowly lift your head. Let the muscles of your belly relax. Point your tailbone up toward the ceiling so your back forms a sagging arch like the back of a cow. 5.?? Stay in this position for 5 seconds. Press-ups Do these steps 5???10 times in a row: 1.?? Lie on your belly (face-down) on a firm bed or the floor. 2.?? Place your hands near your head, about shoulder-width apart. 3.?? While you keep your back relaxed and keep your hips on the floor, slowly straighten your arms to raise the top half of your body and lift your shoulders. Do not use your back muscles. You may change where you place your hands to make yourself more comfortable. 4.?? Stay in this position for 5 seconds. Keep your back relaxed. 5.?? Slowly return to lying flat on the floor. Bridges Do these steps 10 times in a row: 1.?? Lie on your back on a firm bed or the floor. 2.?? Bend your knees so they point up to the ceiling. Your feet should be flat on the floor. Your arms should be flat at your sides, next to your body. 3.?? Tighten your butt muscles and lift your butt off the floor until your waist is almost as high as your knees. If you do not feel the muscles working in your butt and the back of your thighs, slide your feet 1???2 inches (2.5???5 cm) farther away from your butt. 4.?? Stay in this position for 3???5 seconds. 5.?? Slowly lower your butt to the floor, and let your butt muscles relax. If this exercise is too easy, try doing it with your arms crossed over your chest. Belly crunches Do these steps 5???10 times in a row: 1.?? Lie on your back on a firm bed or the floor with your legs stretched out. 2.?? Bend your knees so they point up to the ceiling. Your feet should be flat on the floor. 3.?? Cross your arms over your chest. 4.?? Tip your chin a little bit toward your chest, but do not bend your neck. 5.?? Tighten your belly muscles and slowly raise your chest just enough to lift your shoulder blades a tiny bit off the floor. Avoid raising your body higher than that because it can put too much stress on your lower back. 6.?? Slowly lower your chest and your head to the floor. Back lifts Do these steps 5???10 times in a row: 1.?? Lie on your belly (face-down) with your arms at your sides, and rest your forehead on the floor. 2.?? Tighten the muscles in your legs and your butt. 3.?? Slowly lift your chest off the floor while you keep your hips on the floor. Keep the back of your head in line with the curve in your back. Look at the floor while you do this. 4.?? Stay in this position for 3???5 seconds. 5.?? Slowly lower your chest and your face to the floor. Contact a doctor if: ? Your back pain gets a lot worse when you do an exercise. ? Your back pain does not get better within 2 hours after you exercise. If you have any of these problems, stop doing the exercises. Do not do them again unless your doctor says it is okay. Get help right away if: ? You have sudden, very bad back pain. If this happens, stop doing the exercises. Do not do them again unless your doctor says it is okay. This information is not intended to replace advice given to you by your health care provider. Make sure you discuss any questions you have with your health care provider. Document Revised: 10/25/2021 Document Reviewed: 10/25/2021 [employer] Patient Education ?? 2021 [employer] Sciatica Sciatica is pain, weakness, tingling, or loss of feeling (numbness) along the sciatic nerve. The sciatic nerve starts in the lower back and goes down the back of each leg. Sciatica usually goes away on its own or with treatment. Sometimes, sciatica may come back (recur). What are the causes? This condition happens when the sciatic nerve is pinched or has pressure put on it. This may be theresult of: ? A disk in between the bones of the spine bulging out too far (herniated disk). ? Changes in the spinal disks that occur with aging. ? A condition that affects a muscle in the butt. ? Extra bone growth near the sciatic nerve. ? A break (fracture) of the area between your hip bones (pelvis). ? . ? Tumor. This is rare. What increases the risk? You are more likely to develop this condition if you: ? Play sports that put pressure or stress on the spine. ? Have poor strength and ease of movement (flexibility). ? Have had a back injury in the past. ? Have had back surgery. ? Sit for long periods of time. ? Do activities that involve bending or lifting over and over again. ? Are very overweight (obese). What are the signs or symptoms? Symptoms can vary from mild to very bad. They may include: ? Any of these problems in the lower back, leg, hip, or butt: ? Mild tingling, loss of feeling, or dull aches. ? Burning sensations. ? Sharp pains. ? Loss of feeling in the back of the calf or the sole of the foot. ? Leg weakness. ? Very bad back pain that makes it hard to move. These symptoms may get worse when you cough, sneeze, or laugh. They may also get worse when you sitor stand for long periods of time. How is this treated? This condition often gets better without any treatment. However, treatment may include: ? Changing or cutting back on physical activity when you have pain. ? Doing exercises and stretching. ? Putting ice or heat on the affected area. ? Medicines that help: ? To relieve pain and swelling. ? To relax your muscles. ? Shots (injections) of medicines that help to relieve pain, irritation, and swelling. ? Surgery. Follow these instructions at home: Medicines ? Take [id number] and prescription medicines only as told by your doctor. ? Ask your doctor if the medicine prescribed to you: ? Requires you to avoid driving or using heavy machinery. ? Can cause trouble pooping (constipation). You may need to take these steps to prevent or treat trouble pooping: ? Drink enough fluids to keep your pee (urine) pale yellow. ? Take load-ahe-tdoxisw or prescription medicines. ? Eat foods that are high in fiber. These include beans, whole grains, and fresh fruits and vegetables. ? Limit foods that are high in fat and sugar. These include fried or sweet foods. Managing pain ? If told, put ice on the affected area. ? Put ice in a plastic bag. ? Place a towel between your skin and the bag. ? Leave the ice on for 20 minutes, 2???3 times a day. ? If told, put heat on the affected area. Use the heat source that your doctor tells you to use, suchas a moist heat pack or a heating pad. ? Place a towel between your skin and the heat source. ? Leave the heat on for 20???30 minutes. ? Remove the heat if your skin turns bright red. This is very important if you are unable to feel pain, heat, or cold. You may have a greater risk of getting burned. Activity ? Return to your normal activities as told by your doctor. Ask your doctor what activities are safe for you. ? Avoid activities that make your symptoms worse. ? Take short rests during the day. ? When you rest for a long time, do some physical activity or stretching between periods of rest. ? Avoid sitting for a long time without moving. Get up and move around at least one time each hour. ? Exercise and stretch regularly, as told by your doctor. ? Do not lift anything that is heavier than 10 lb (4.5 kg) while you have symptoms of sciatica. ? Avoid lifting heavy things even when you do not have symptoms. ? Avoid lifting heavy things over and over. ? When you lift objects, always lift in a way that is safe for your body. To do this, you should: ? Bend your knees. ? Keep the object close to your body. ? Avoid twisting. General instructions ? Stay at a healthy weight. ? Wear comfortable shoes that support your feet. Avoid wearing high heels. ? Avoid sleeping on a mattress that is too soft or too hard. You might have less pain if you sleep glenn mattress that is firm enough to support your back. ? Keep all follow-up visits as told by your doctor. This is important. Contact a doctor if: ? You have pain that: ? Wakes you up when you are sleeping. ? Gets worse when you lie down. ? Is worse than the pain you have had in the past. ? Lasts longer than 4 weeks. ? You lose weight without trying. Get help right away if: ? You cannot control when you pee (urinate) or poop (have a bowel movement). ? You have weakness in any of these areas and it gets worse: ? Lower back. ? The area between your hip bones. ? Butt. ? Legs. ? You have redness or swelling of your back. ? You have a burning feeling when you pee. Summary ? Sciatica is pain, weakness, tingling, or loss of feeling (numbness) along the sciatic nerve. ? This condition happens when the sciatic nerve is pinched or has pressure put on it. ? Sciatica can cause pain, tingling, or loss of feeling (numbness) in the lower back, legs, hips, andbutt. ? Treatment often includes rest, exercise, medicines, and putting ice or heat on the affected area. This information is not intended to replace advice given to you by your health care provider. Make sure you discuss any questions you have with your health care provider. Document Revised: 08/31/2019 Document Reviewed: 08/31/2019 [employer] Patient Education ?? 2021 [employer] Electronically Signed on: 07/29/2022 09:35 ESTSigned by:JULIANA
[2023-06-06] MEDS: Haloperidol 5 MG/ML VIAL 4 MG IM (12:05)
[2023-06-06] MEDS: Midazolam 2 MG/2 ML VIAL IM ×2 (12:05→13:21)
--- NOTE | 2023-06-06 13:15 | RT.EKG_ITS ---
APPROVED REPORT Exam: Resting ECG Reason for Exam: psychosis Patient Location: E HR:89 bpm ECG Measurements Heart Rate 89 AXIS AK 119 P 63 QRSd 104 QRS 55 QT 371 T 40 QTc 453 Conclusion Sinus rhythm...normal P axis, V-rate 60- 99 sinus rhythm, normal axis, normal intervals
[2023-06-06] MEDS: Droperidol 5 MG/2 ML VIAL (13:20)
[2023-06-06 13:35] LABS: Abs Immature Grans 0.02 10^3/uL (0.0-0.06); Absolute Basophil Count 0.04 10^3/uL (0.0-0.2); Absolute Lymphocyte Count 1.36 10^3/uL (1.2-3.4); Absolute Monocyte Count 0.71 10^3/uL (0.1-0.8); Absolute Neutrophil Count 5.74 10^3/uL (1.2-6.7); Basophils % 0.5; Eosinophils % 1.3; HCT 37.5 % (40.0-50.0); Immature Grans % 0.3; Lymphocytes % 17.1; MCH 21.9 pg (27.0-33.0); MPV 10.7 fL (8.0-11.0); Monocytes % 8.9; Neutrophils % 71.9; Platelet Count 297 10^3/uL (130-400); RBC 5.49 10^6/uL (4.36-5.78); RDW 14.5 % (11.8-14.1); RDW-SD 34.7 fL; WBC 7.97 10^3/uL (4.4-10.8)
[2023-06-06 13:38] LABS: MCV 68 fL (80-95)
[2023-06-06 13:53] LABS: Source Nasal/Nares
[2023-06-06 13:55] LABS: Salicylate < 2.8 mg/dL (<2.8)
[2023-06-06 14:05] LABS: ALT 44 U/L (16-63); AST 47 U/L (15-37); Albumin 3.7 g/dL (3.4-5.0); Alkaline Phosphatase 65 U/L (46-116); BUN 10 mg/dL (7-18); Bilirubin, Total 0.5 mg/dL (0.2-1.0); Calcium 9.2 mg/dL (8.5-10.1); Chloride 101 mmol/L (98-107); ETHANOL BLOOD 3.2 mg/dL (<10); Estimated GFR 105.79 (mL/min/1.73m2); Glucose 135 mg/dL (74-106); Potassium 3.7 mmol/L (3.5-5.1); Sodium 137 mmol/L (136-145); TSH (W/Ref FT4) 1.12 uIU/mL (0.36-3.74); Total Protein 7.4 g/dL (6.4-8.2)
[2023-06-06 14:08] LABS: Acetaminophen < 2 ug/mL (10-30)
[2023-06-06] MEDS: Midazolam 2 MG/2 ML VIAL 4 MG IM ×2 (14:09→14:22)
[2023-06-06 14:25] LABS: COVID-19 PCR Negative (Negative)
[2023-06-06] MEDS: Nicotine 4 MG GUM CH (15:00)
[2023-06-06 15:05] LABS: Bilirubin Negative (Negative); Blood Negative (Negative); Clarity Clear (Clear); Glucose Negative (Negative); Ketones Negative (Negative); Leukocyte Esterase Negative (Negative); Nitrite Negative (Negative); Urobilinogen 0.2 mg/dL (Up to 0.2)
--- NOTE | 2023-06-06 15:05 | W.ED.GENAD ---
Discharge Plan Disposition Patient Disposition: Eloped Condition: Improving Discharge Details Clinical Impression: Aggressive behavior Primary Care Provider: Saqib Powell ED Provider: Rahul Garcia Home Meds and New Rx's Prescriptions: No Action lamotrigine [Lamictal] 25 mg Tablet 50 mg PO DAILY Patient Comments: not taking doxycycline hyclate 100 mg capsule 100 mg PO BID Qty: 18 0RF Discharge Data Discharge Date/Time-TO BE ENTERED AT DEPARTURE: 06/06/23 18:48 Medical Decision Making <ADEOLA Draper - Last Filed: 06/08/23 08:04> 28-year-old male presenting with acute agitation and psychosis for father, been noncompliant with his psychiatric medications for the past several weeks, father states he took some edibles and maybe had a glass of wine but has not had any additional illicit substances that he is aware of and he has been on his home States this is an identical presentation to his previous, states at home there is been some stressors as patient's father and mother are considering divorce Patient was extremely agitated, not combative but verbally abusive in the emergency department, given his acute psychosis, 5 mg of Haldol and 2 of Versed were given for anxiety and psychosis as patient is a known paranoid scribe schizophrenic Of note, this patient is known to this facility and has been quite aggressive and agitated in the past, requiring both chemical and physical restraints He tolerated this well and was still quite agitated so after approximately an hour 5 mg of droperidol was initiated with another 2 of Versed for anxiolysis and acute agitation and psychosis similar to prior presentations, he was still quite agitated after this, swearing at father and staff and agreeable to receiving IM medications and p.o. medications so no physical restraint was initiated at this time, and I am not using these medications as a form of chemical restraint, he has been compliant with receiving them and would like help verbalizes that he would like help for his acute psychosis which is why this was initiated, he is persistently agitated so an additional 4 mg of Versed was administered and patient is finally resting in the room, he has been up for several days per father, on reassessment he is sleeping, he has remained on pulse oximetry with monitoring, he has no apnea or stridor, unfortunately secondary to multiple medications to assist with patient's agitation and anxiety, he will not be able to be assessed until he wakes, vitals have remained stable Care be transitioned to Dr. Malvin Moctezuma pending reassessment and mental health evaluation, <Rahul Garcia MD - Last Filed: 06/06/23 18:46> 28-year-old male presenting with acute agitation and psychosis for father, been noncompliant with his psychiatric medications for the past several weeks, father states he took some edibles and maybe had a glass of wine but has not had any additional illicit substances that he is aware of and he has been on his home States this is an identical presentation to his previous, states at home there is been some stressors as patient's father and mother are considering divorce Patient was extremely agitated, not combative but verbally abusive in the emergency department, given his acute psychosis, 5 mg of Haldol and 2 of Versed were given for anxiety and psychosis as patient is a known paranoid scribe schizophrenic Of note, this patient is known to this facility and has been quite aggressive and agitated in the past, requiring both chemical and physical restraints He tolerated this well and was still quite agitated so after approximately an hour 5 mg of droperidol was initiated with another 2 of Versed for anxiolysis and acute agitation and psychosis similar to prior presentations, he was still quite agitated after this, swearing at father and staff and agreeable to receiving IM medications and p.o. medications so no physical restraint was initiated at this time, and I am not using these medications as a form of chemical restraint, he has been compliant with receiving them and would like help verbalizes that he would like help for his acute psychosis which is why this was initiated, he is persistently agitated so an additional 4 mg of Versed was administered and patient is finally resting in the room, he has been up for several days per father, on reassessment he is sleeping, he has remained on pulse oximetry with monitoring, he has no apnea or stridor, unfortunately secondary to multiple medications to assist with patient's agitation and anxiety, he will not be able to be assessed until he wakes, vitals have remained stable Care be transitioned to Dr. Malvin Moctezuma pending reassessment and mental health evaluation, 18: 45 patient became verbally and physically aggressive with staff marly urban was called to the bedside, patient was allowed to walk out of department for safety of staff HPI <ADEOLA Draper - Last Filed: 06/08/23 08:04> General Date/Time Provider Initiated Documentation: 06/06/23 11:43. HPI Narrative: This 28-year-old male with history of psychosis, paranoid schizophrenia, homicidal and suicidal ideation presents with report of acute psychosis, not taking his prescribed psychiatric meds per father who presents with patient, patient is not endorsing suicidality or homicidality, however he is very agitated on initial assessment, father states this typically happens when patient is noncompliant with his meds. Related Data Home Medications Medication Instructions Recorded Confirmed lamotrigine 25 mg tablet (Lamictal) 50 mg PO DAILY 11/08/22 11/08/22 doxycycline hyclate 100 mg capsule 100 mg PO BID #18 caps 05/01/23 Previous Rx's Medication Instructions Recorded doxycycline hyclate 100 mg capsule 100 mg PO BID #18 caps 05/01/23 Allergies Allergy/AdvReac Type Severity Reaction Status Date / Time No Known Allergies Allergy Unverified 05/01/23 18:55 General Stated Complaint: PsychEval KEITH: 2 PFSH <ADEOLA Draper - Last Filed: 06/08/23 08:04> All Active Problems (Updated 06/06/23 @ 18:46 by Rahul Garcia MD) Aggressive behavior (Acute) Homicidal ideation (Acute) Aggressive behavior (Acute) Alcohol abuse (Chronic) Discharge planning issues (Acute) DVT prophylaxis (Acute) Microcytosis (Acute) Polysubstance abuse (Acute) Suicidal ideation (Acute) Acute psychosis (Acute) Psychosis (Acute) 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 Maternal History Diabetes Social History Smoking/Tobacco Use Status: Current every day Tobacco Type: cigarettes Smoking risk assessment performed?: Yes Alcohol Intake: current Alcohol type: beer, wine and hard liquor Drug use: Daily Substance use type: marijuana Housing: house Additional Social history: many changes happening in life - moving to [place], new jobs, mother lives in [place] father lives in [place], [place] (2022) Course <ADEOLA Draper - Last Filed: 06/08/23 08:04> Vital Signs Vital signs: Vital Signs Temperature 36.8 C 06/06/23 11:46 Pulse 107 H 06/06/23 11:46 Respiratory Rate 16 06/06/23 11:46 Blood Pressure 133/92 H 06/06/23 11:46 Pulse Oximetry 98 06/06/23 11:46 Temperature 36.8 C 06/06/23 11:46 Temperature Source Skin 06/06/23 11:46 Pulse 107 H 06/06/23 11:46 Respiratory Rate 16 06/06/23 11:46 Blood Pressure 133/92 H 06/06/23 11:46 Blood Pressure Position Sitting 06/06/23 11:46 Pulse Oximetry 98 06/06/23 11:46 Oxygen Delivery Method Room Air 06/06/23 11:46 Oxygen Flow Rate 0 06/06/23 11:46 Pain Level 0 06/06/23 11:46 Lab/Test Results Lab/Test Results: Laboratory Tests Range/Units 06/06/23 06/06/23 06/06/23 12:35 13:08 13:37 WBC (4.4-10.8) 10^3/uL 7.97 RBC (4.36-5.78) 10^6/uL 5.49 Hgb (13.5-17.5) g/dL 12.0 L Hct (40.0-50.0) % 37.5 L MCV (80-95) fL 68 L MCH (27.0-33.0) pg 21.9 L MCHC (32.0-36.0) % 32.0 RDW (11.8-14.1) % 14.5 H Plt Count (130-400) 10^3/uL 297 MPV (8.0-11.0) fL 10.7 Immature Gran % 0.3 Neutrophils % 71.9 Lymphocytes % 17.1 Monocytes % 8.9 Eosinophils % 1.3 Basophils % 0.5 Nucleated RBC % (0.0-0.3) % 0.0 Absolute Neutrophils (1.2-6.7) 10^3/uL 5.74 Absolute Lymphocytes (1.2-3.4) 10^3/uL 1.36 Absolute Monocytes (0.1-0.8) 10^3/uL 0.71 Absolute Eosinophils (0.0-0.7) 10^3/uL 0.10 Absolute Basophils (0.0-0.2) 10^3/uL 0.04 Sodium (136-145) mmol/L 137 Potassium (3.5-5.1) mmol/L 3.7 Chloride (98-107) mmol/L 101 Carbon Dioxide (21.0-32.0) mmol/L 28.0 Anion Gap (3-11) mmol/L 8.0 BUN (7-18) mg/dL 10 Creatinine (0.70-1.30) mg/dL 1.0 Est GFR (CKD-EPI 2020) (mL/min/1.73m2) 105.79 Glucose (74-106) mg/dL 135 H Calcium (8.5-10.1) mg/dL 9.2 Total Bilirubin (0.2-1.0) mg/dL 0.5 AST (15-37) U/L 47 H ALT (16-63) U/L 44 Alkaline Phosphatase (46-116) U/L 65 Total Protein (6.4-8.2) g/dL 7.4 Albumin (3.4-5.0) g/dL 3.7 TSH (0.36-3.74) uIU/mL 1.12 Urine Color Cancelled Urine Clarity Cancelled Urine pH Cancelled Ur Specific [place] Cancelled Urine Protein Cancelled Urine Ketones Cancelled Urine Blood Cancelled Urine Nitrite Cancelled Urine Bilirubin Cancelled Urine Urobilinogen Cancelled Ur Leukocyte Esterase Cancelled Urine Glucose Cancelled Salicylates (<2.8) mg/dL < 2.8 Acetaminophen (10-30) ug/mL < 2 Ethyl Alcohol (<10) mg/dL 3.2 COVID-19 Source Nasal/Nares SARS-CoV-2 (PCR) (Negative) Negative
[2023-06-06 15:26] LABS: Bacteria Negative HPF (Negative); C & S Indicated? No; Casts Negative LPF (Negative); Crystals Negative HPF (Negative); Epithelial Cells Rare HPF (Negative); Mucus Negative (Negative); RBC Negative HPF (0-2); WBC 0-2 HPF (0-5)
[2023-06-06 15:27] VITALS: PULSE 85; O2SAT 96
[2023-06-06 15:35] LABS: *AMPHETAMINES SCREEN URINE Negative (Negative); *BARBITURATES SCREEN URINE Negative (Negative); *BENZODIAZEPINES SCREEN URINE Positive (Negative); Cannabinoids THC Positive (Negative); Cocaine Screen,Urine Negative (Negative); METHADONE URINE SCREEN Negative (Negative); OPIATES URINE SCREEN Negative (Negative)
[2023-06-06 15:37] LABS: Tricyclic Antidepressants Positive (Negative)
[2023-06-06 15:40] VITALS: PULSE 80; O2SAT 96
--- NOTE | 2023-06-06 15:42 | PDOC.CMSAFE ---
Date of service: 06/06/23 Time of Service: 15:42 Care Management Safety Plan Status Status: Interim Reason for Wait Reason for Wait: Medical Clearance Safety Plan Safety Plan: Chief Complaint: Attila is a 28 year old male who presents in the ED accompanied by his father.? Per provider note, he arrives agitated but is not endorsing SI/HI.? Attila, who has a history of psychosis, has reportedly not been compliant with his psychiatric meds, according to his father.? He has a diagnosis on record of paranoid schizophrenia. CM will respond to ED to assess patient after patient has been medically cleared and assessed by screener. If screener deems patient meets criteria for psychiatric stabilization CM will facilitate interdepartmental huddle with [facility] screener for safety planning considerations and meet with patient to review [facility] policy and safety plan, establish individual wishes for treatment and maintain patient rights. In the interim; please note safety plan below to guide patient care while awaiting further assessment in the ED.? SAFETY PLAN: 1. Will remain on suicide precautions and in paper clothes.? 2. Will remain in room under direct supervision of one-on-one staff at all times provided by [employer], CARLOS ENRIQUE, [employer] forensic photographer. 3. May have paper cups, plates, finger foods as well as a cardboard spoon with which to eat meals. 4. Follow [facility] Management of the Admitted Behavioral Health Patient policy. 5. Personal care: Comfort bath system only at this time. 6. Bathroom privileges: with escort in ED. Available without limitation on Zone B. 6. No personal belongings at this time; per RN discretion. 7. Visitors: Limited to parents at RN discretion. 8. Phone contact limited to family via cordless hospital phone at RN discretion. 9. Activities: Soft cart items, television and other activities at RN discretion. 10. Due to VOLUNTARY status, if patient wishes to leave [facility], staff will contact [facility] Crisis Screener ([phone]) and On-Call [place] ([phone]) as soon as possible. In the event of elopement, notify [facility] Police ([phone]). If deemed appropriate for inpatient psychiatric care, safety plan will be established with patient, and care team, to adhere to patient goals, identify restrictions based on behavioral status, address nutrition, and determine allowed personal belongings, tools for hygiene and personal care. As well plan will determine level of activity including ambulation, level of supervision, visitors, and determine privileges based on level of acuity, behaviors and level of engagement by patient.
[2023-06-06 17:28] VITALS: PULSE 78; RESP 14; O2SAT 98
--- NOTE | 2023-06-06 18:36 | NUR.NOTE ---
Nursing Note: 1814 patient woke for few mins after EKG performed. Yelled at this RN saying everything is your fault and turned over and appeared to fall back asleep. [employer] at Bedside VS WNL
[2023-06-06 18:38] VITALS: PULSE 86; O2SAT 98
--- NOTE | 2023-06-06 18:48 | NUR.NOTE ---
Nursing Note: patient woke up put coat shoes on, started screaming and walked out the door. Security reported he walked [place] on [address] this was reported to his father
== END 2023-06-06 18:48 | disposition left against medical advice (07) ==
PROVIDERS: Physician Assistant; Emergency Provider Emergency Medicine; PCP Family Medicine
DX: R45.1 Restlessness and agitation (principal); F17.210 Nicotine dependence, cigarettes, uncomplicated; F29 Unspecified psychosis not due to a substance or known physiological condition; Z91.148 Patient's other noncompliance with medication regimen for other reason; Z20.822 Contact with and (suspected) exposure to COVID-19; Z53.29 Procedure and treatment not carried out because of patient's decision for other reasons
CPT/HCPCS: 36415; 80053; 80307; 87635; 93005; 96372; 99284; 80320; 80329; 81003; 81015; 84443; 85025; 93010; J1630; J1790; J2250